=== PATIENT | female | born 1950 | race Caucasian/White ===

== ENCOUNTER 2020-01-21 11:42 | Outpatient (REF) | payer BC, SELFPAY ==
--- NOTE | 2020-01-21 11:48 | MM_ITS ---
EXAMINATION: MM DIAGNOSTIC DIGITAL BREAST TOMOSYNTHESIS, BILATERAL CLINICAL INFORMATION: Status post right lumpectomy 12/24/2018 for invasive lobular cancer upper outer quadrant. Due for yearly. COMPARISON: Mammography: 12/24/2018, 11/20/2018, 11/11/2018, 10/31/2018, 07/19/2016 TECHNIQUE: Digital breast tomosynthesis is performed in both the craniocaudal and mediolateral oblique views along with computer-aided detection (CAD). Synthesized 2D images are generated from the tomosynthesis. Additional views are obtained: Exaggerated right CC, magnification right CC, magnification right exaggerated CC, magnification right ML. FINDINGS: There are scattered areas of fibroglandular density (ACR BI-RADS breast composition Category b). There are post therapy changes upper outer right breast with mild reduced breast size, scarring, surgical clips, and mild smooth skin thickening. The remainder of the right breast is unremarkable. Left breast parenchymal pattern is similar to prior studies. There is no developing density or interval mass or architectural abnormality. No abnormal calcifications. There are stable bulky calcifications versus clip markers left axillary node similar to prior exams. No significant changes. MM/MM tomosynthesis diagnostic BI IMPRESSION: No mammographic evidence of malignancy. Post therapy changes right breast. ASSESSMENT: BI-RADS 2: Benign RECOMMENDATION: Annual bilateral mammography. This patient's information was entered into a reminder system with a target due date for their next mammogram.
== END 2020-01-21 11:43 | disposition home or self-care (01) ==
LOC: HO.MAMMO 11:42
PROVIDERS: PCP Internal Medicine; Visit Provider Internal Medicine
DX: Z85.3 Personal history of malignant neoplasm of breast (principal)
CPT/HCPCS: 77062; 77066

== ENCOUNTER → 2020-01-26 09:22 | Outpatient (BNV) | payer MEDICARE, BC, SELFPAY | PROVIDERS: PCP Internal Medicine; Visit Provider Internal Medicine | DX: Z85.3 Personal history of malignant neoplasm of breast (principal); Z92.3 Personal history of irradiation | CPT/HCPCS: 99213; G2211 ==

== ENCOUNTER 2021-01-18 12:17 | Outpatient (REF) | payer BC, SELFPAY ==
--- NOTE | ~2021-01-18 | MM_ITS ---
EXAMINATION: MM DIAGNOSTIC DIGITAL BREAST TOMOSYNTHESIS, BILATERAL CLINICAL INFORMATION: Right lumpectomy for invasive lobular cancer upper outer quadrant, 12/24/2018. Due for yearly. COMPARISON: Mammography: 01/21/2020, 12/24/2018, 11/11/2018, 10/31/2018, 07/19/2016 TECHNIQUE: Digital breast tomosynthesis is performed in both the craniocaudal and mediolateral oblique views along with computer-aided detection (CAD). Synthesized 2D images are generated from the tomosynthesis. Additional magnification right CC and magnification right ML views are obtained. FINDINGS: There are scattered areas of fibroglandular density (ACR BI-RADS breast composition Category b). Left breast is unremarkable. There is no developing density or interval mass or architectural abnormality. Neither breast shows abnormal calcifications. There are stable post therapy changes on the right with reduced breast size and scarring. No significant changes from prior study. Results are provided to the patient at time of visit by the technologist. MM/MM tomosynthesis diagnostic BI IMPRESSION: No mammographic evidence of malignancy. Post therapy changes right breast. ASSESSMENT: BI-RADS 2: Benign RECOMMENDATION: Annual bilateral mammography. This patient's information was entered into a reminder system with a target due date for their next mammogram.
== END 2021-01-18 12:18 | disposition home or self-care (01) ==
LOC: HO.MAMMO 12:17
PROVIDERS: Visit Provider Internal Medicine
DX: R92.2 Inconclusive mammogram (principal); Z85.3 Personal history of malignant neoplasm of breast
CPT/HCPCS: 77062; 77066

== ENCOUNTER 2022-01-19 12:49 | Outpatient (REF) | payer MEDICARE, SELFPAY ==
--- NOTE | ~2022-01-19 | MM_ITS ---
EXAMINATION: BONE DENSITOMETRY CLINICAL INDICATION: Other specified disorders of bone density and structure. COMPARISON: Previous BD dated 10/31/2018 and baseline BD dated 08/08/2006. TECHNIQUE: Using a [employer] DXA System (software version: 13.1) manufactured by [employer], dual-energy x-ray absorptiometry was performed of the lumbar spine and left hip. The images are of good technical quality. Summary results are attached. FINDINGS: AP SPINE L1-L4: Current: BMD 1.086 g/cm2, Z-score 1.4, T-score -0.8, normal, 2.5% decrease from previous, 3.5% decrease from baseline (<5% change is not significant). Prior: BMD 1.114 g/cm2. Baseline: BMD 1.125 g/cm2. LEFT FEMUR, NECK: Current: BMD 0.841 g/cm2, Z-score 0.7, T-score -1.4, osteopenia. Prior: BMD 0.858 g/cm2. Baseline: BMD 0.909 g/cm2. LEFT FEMUR, TOTAL: Current: BMD 0.948 g/cm2, Z-score 1.4, T-score -0.5, normal, 1.7% increase from previous, 9.0% decrease from baseline (<5% change is not significant). Prior: BMD 0.932 g/cm2. Baseline: BMD 1.042 g/cm2. IDENTIFIED RISK FACTORS: Menopause. HISTORY OF FRACTURE: None listed. MEDICATIONS: Calcium supplements or multivitamin, vitamin D. MM/XR DEXA axial skeleton IMPRESSION: 1. DIAGNOSIS: Osteopenia based on the lowest T-score value of -1.4 in the femoral neck applying World Health Organization criteria. 2. 10-YEAR FRACTURE RISK PREDICTION, FRAX: Major osteoporotic fracture (clinical spine, forearm, hip or shoulder) 9.0%. Hip fracture 1.6%. 3. Treatment Recommendations: NOF guidelines recommend consideration for treatment in postmenopausal women and men age 50 and older presenting with the following: -A hip or vertebral (clinical or morphometric) fracture. -T-score less than or equal to -2.5 at the femoral neck or spine after appropriate evaluation to exclude secondary causes. -Low bone mass at the hip or spine and a 10-year fracture probability by FRAX of greater than or equal to 3% for hip fracture or greater than or equal to 20% for major osteoporotic fracture based on the [place] adapted WHO algorithm. 4. Other Recommendations: All treatment decisions require clinical judgment and consideration of individual patient factors, including patient preferences, comorbidities, previous drug use, risk factors not captured in the FRAX model (e.g. frailty, falls, vitamin D deficiency, increased bone turnover, interval significant decline in bone density) and possible under or overestimation of fracture risk by FRAX. Additional medical evaluation for secondary cause of low bone mineral density may be appropriate. FUTURE SCAN RECOMMENDATION: People with diagnosed cases of osteoporosis or at high risk for fracture should have regular bone mineral density tests. For patients eligible for Medicare, routine testing is allowed once every 2 years. The testing frequency can be increased to one year for patients who have rapidly progressing disease, those who are receiving or discontinuing medical therapy to restore bone mass, or have additional risk factors.
--- NOTE | ~2022-01-19 | MM_ITS ---
EXAMINATION: MM DIAGNOSTIC DIGITAL BREAST TOMOSYNTHESIS, BILATERAL CLINICAL INFORMATION: Due for yearly. Right ILC status post lumpectomy 12/24/2018. COMPARISON: Mammography: 01/18/2021, 01/21/2020, 12/24/2018, 09/19/2018, 11/11/2018, 10/31/2018 TECHNIQUE: Digital breast tomosynthesis is performed in both the craniocaudal and mediolateral oblique views along with computer-aided detection (CAD). Synthesized 2D images are generated from the tomosynthesis. Additional right magnification CC and right magnification ML views are provided. FINDINGS: There are scattered areas of fibroglandular density (ACR BI-RADS breast composition Category b). Right breast post therapy changes are similar to prior exam. There is reduced breast size and stable scarring posterior upper outer quadrant. Neither breast shows interval mass or architectural abnormality or abnormal calcifications. There are no significant changes. Results are provided to the patient at time of visit by the technologist. MM/MM tomosynthesis diagnostic BI IMPRESSION: -No mammographic evidence of malignancy. -Post therapy changes right breast. ASSESSMENT: BI-RADS 2: Benign RECOMMENDATION: Routine annual mammography screening. This patient's information was entered into a reminder system with a target due date for their next mammogram.
== END 2022-01-19 12:50 | disposition home or self-care (01) ==
LOC: HO.MAMMO 12:49
PROVIDERS: PCP Internal Medicine; Visit Provider Internal Medicine
DX: Z13.820 Encounter for screening for osteoporosis (principal); M85.852 Other specified disorders of bone density and structure, left thigh; Z78.0 Asymptomatic menopausal state; Z85.3 Personal history of malignant neoplasm of breast
CPT/HCPCS: 77062; 77066; 77080

== ENCOUNTER 2022-11-09 08:23 | Outpatient (AMB) | payer MEDICARE, SELFPAY ==
--- NOTE | 2022-11-09 08:27 | AM.OFFVISMDC ---
Intake Vital Signs 11/09/22 08:33 Height 5 ft 3 in Weight 115 lb BMI 20.4 BP 138/78 Blood Pressure Location Rt brachial Position Sitting Pulse 76 Pulse Source Pulse Oximeter Pulse Oximetry (%) 96 Oxygen Delivery Method Room Air Intake Visit Reasons: awv Intake Note: Pt is here today for her AWV Allergies nickel [NICKEL] Allergy (Unknown, Verified 11/09/22 09:07) RASH Medication List - Last Reconciled 11/09/22 by Haily Gee MD [calcium 1 tab PO DAILY] cholecalciferol (vitamin D3) (Vitamin D3) 25 mcg PO DAILY HPI awv HPI Details AWV ?72 year old lady with history of right breast cancer, osteopenia of left femoral neck, and history of adenomatous polyps removed from colon, presents today for her initial Annual Wellness Visit.? She is due for her repeat colonoscopy due this year, with Dr. Logan. She is up-to-date with her screening mammogram, and had a bone density scan done 01/19/2022 which showed presence of osteopenia in left femoral neck. Up-to-date with her screening mammogram, due again January this year and had a normal Pap smear done in 2012, repeat no longer indicated. She had a fasting lipid panel done in 2019 which showed elevated LDL cholesterol with normal HDL Will and the fasting glucose was done 02/08/2022 which showed of sugar in the prediabetic range at 125 mg/dL. She has had all her COVID vaccine, will be getting the new booster dose went out, up-to-date with her Tdap, and gets yearly flu shots. She had get Pneumovax 23, but is due for her Prevnar 20. Has not yet had her shingles vaccine ? Medical / Social History Reviewed? Past Medical History ?Yes . ? [place] of Care / Care Team list updated ?Yes . ? Surgical/Hospitalization History ?Yes . ? Current Medications (including OTC and supplements) ?Yes . ? Family History ?Yes . ? Tobacco Control form ?Yes . ? AUDIT-C (Alcohol use) form ?Yes . ? Illicit drug use in Social History ?Yes . ? Current diagnosis of depression? ?No ? Appropriate PHQ2/PHQ9 completed ?Yes . ? Data entered by ?[employer]lee[employer] Worker and reviewed by provider ? Fall Risk ? Fall History? Have you had any falls with injury in the past year? ?No . ? Have you had two or more falls in the past year? ?No . ? Fall Risk Assessment: ?No falls in the past year . ? HRA filled out by the patient, reviewed by Provider and scanned. ? IPPE/AWV ? Balance? Romberg ?Yes . ? Tandem walk ?Yes . ? Walk and Turn ?Yes . ? Rise from sit to stand ?Yes . ?Vision? Corrective lens ?none, [facility]. ? Vision screen ? Up-to-date, , goes to [facility] for her routine eye exam ?Hearing? Whisper test ?pass . ?Written Plan?Completed. See Patient Documents.? PFSH Medical History Hyperlipidemia LDL goal <100 Impaired fasting glucose History of adenomatous polyp of colon Lobular carcinoma of right breast Surgical History History of surgery Hx of tonsillectomy Family History Mother Pancreatic cancer Father Heart disease Social History Household Members: Spouse Housing: House Are you a primary sub acute care nurse to a significant other at home: No Do you presently have visiting nurse or other home services: No Alcohol intake: current Alcohol intake frequency: holidays/special occasions only Patient Tobacco Use Status: Never used Tobacco e-Cigarette/Vaping Use: Never Used service: No Current occupational status: retired 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 Cognitive needs: No Hearing needs: No Vision needs: Yes Female Reproductive History Menstrual Menopause type: natural Date of Mammogram: 01/19/22 Date of last Bone Density Screenin01/19/22 Questionnaire Medicare Wellness Checkup [age] What gender do you identify with?: female During the past 4 weeks, how much have you been bothered by emotional problems such as feeling anxious, depressed, irritable, sad or downhearted, and blue?: not at all During the past 4 weeks, has your physical & emotional health limited your social activities with family, friends, neighbors, or groups?: not at all During the past 4 weeks, how much bodily pain have you generally had?: no pain During the past 4 weeks, was someone available to help you if you needed & wanted help?: yes, as much as I wanted During the past 4 weeks, what was the hardest physical activity you could do for at least 2 minutes?: moderate Can you get to places out of walking distance without help? (For eg., can you travel alone on buses, taxis or drive your car?): Yes Can you go shopping for groceries or clothes without someone's help?: Yes Can you prepare your own meals?: Yes Can you do your housework without help?: Yes Because of any health problems, do you need the help of another person with your personal care needs such as eating, bathing, dressing or getting around the house?: No Can you handle your own money without help?: Yes During the past 4 weeks, how would you rate your health in general?: excellent During the past 4 weeks how have things been going for you?: very well; could hardly better Are you having difficulties driving your car?: no Do you always fasten your seat belt when you are in a car?: yes, usually During past 4 weeks, have you been bothered by the following: never: Falling or dizzy when standing up, Sexual problems?, Trouble eating well?, Teeth or denture problems?, Problems using the telephone? and Tiredness or fatigue? Have you fallen 2 or more times in the past year?: No Are you afraid of falling?: No Are you a smoker?: no During the past 4 weeks, how many drinks of wine, beer, or other alcoholic beverages did you have?: 1 drink or less per week Do you exercise for about 20 minutes 3 or more times a week?: yes, some of the time Have you been given information to help with the following?: no: Hazards in your house that might hurt you? and no: Keeping track of your medications? How often do you have trouble taking medicines the way you have been told to take them?: I do not have to take medicine How confident are you that you can control & manage most of your health problems?: very confident What is your race?: White Mini Mental State Exam (MMSE) Orientation What is the (year) (season) (date) (day) (month)?: year (2022), season (Summer), date (), day () and month (November) Where are we (state) (county) (town or city) (hospital) (floor)?: state ([place]), county ([place]), town or city ([place]) and hospital/clinic ([facility]) Score Score: 9 Activity of Daily Living Bathing - sponge bath, tub bath or shower: receives no assistance (gets in/out by self, if usual bathing means Dressing - getting clothes from closets & drawers, including inner/outer garments & fasteners.: gets clothes & gets completely dressed without help Toileting - going to the 'toilet room' for urine/bowel elimination & cleaning self/arranging clothes: goes to toilet room, cleans self, arranges clothes without help Transfer: moves in & out of bed and chair without help (may use support object) Continence: controls urination/bowel movements completely by self Feeding: feeds self without help Total Score: 0 Information obtained from: patient Using telephone: independent Traveling: independent Shopping: independent Preparing meals: independent Housework: independent Taking medicine: independent Managing money: independent PHQ-9 Over the last 2 weeks, how often have you been bothered by any of the following problems? 1. Little interest or pleasure in doing things: not at all 2. Feeling down, depressed, or hopeless: not at all 3. Trouble falling or staying asleep, or sleeping too much: not at all 4. Feeling tired or having little energy: not at all 5. Poor appetite or overeating: not at all 6. Feeling bad about yourself - or that you are a failure or have let yourself or your family down: not at all 7. Trouble concentrating on things, such as reading the newspaper or watching television: not at all 8. Moving or speaking so slowly that other people could have noticed. Or the opposite - being so fidgety or restless that you have been moving around a lot more than usual: not at all 9. Thoughts that you would be better off or of hurting yourself in some way: not at all Total score: 0 Depression Screening Interpretation: Negative 53417 - PHQ-9 Billing: Yes Source: Developed by Drs. Indio Swartz, Giana eMjia, Leo López and colleagues, with an educational kamala from [employer]. Physical Exam Vital Signs: Last Vital Signs Pulse 76 11/09/22 08:33 BP 138/78 11/09/22 08:33 Pulse Ox 96 11/09/22 08:33 Oxygen Delivery Method Room Air 11/09/22 08:33 BMI result Body Mass Index 20.4 Immunizations pneumoc 20-mingo conj-dip cr(PF) 0.5 mL IM syringe Performing Provider: Haily Gee MD Performing Location: [facility] Administered by: Angelica Chang CMA on 11/09/22 09:32 Dose Route Admin Location Dispensed Lot Number Expiration Date NDC Location Analyst 0.5 mL IM Left Deltoid 0.5 mL [id number] 11/03/23 7370-1488-90 [employer]/PFIZER VIS Given Date VIS Provided VIS Publication Date 11/09/22 Single Vaccine 21 Eligibility Eligibility Date Funding Source Not [facility] Eligible 11/09/22 Private Assessment & Plan Assessment & Plan (1) Encounter for initial annual wellness visit (AWV) in Medicare patient: Code(s): Z00.00 - Encounter for general adult medical examination without abnormal findings Plan: Medical wellness checklist reviewed, discussed with patient and updated. Referred to Dr. Logan again for her repeat screening colonoscopy. Reminded to get her yearly flu shot and a COVID booster that is coming out later this year, recommended to get Shingrix vaccine and RSV vaccine . Patient already has completed her healthcare proxy and MOLST form , copies are in her medical record (2) History of adenomatous polyp of colon: Comment: Seen on colonoscopy done by Dr. Logan in 2017 Code(s): Z86.010 - Personal history of colonic polyps Plan: GI consult ordered for her repeat screening colonoscopy, due this year (3) Osteopenia of left femoral neck: Code(s): M85.852 - Other specified disorders of bone density and structure, left thigh Plan: Continue with regular weight-bearing exercises and take adequate calcium from dietary sources and tnub-vli-egmihtb vitamin-D 3 at at least 2000 units daily (4) Need for pneumococcal 20-valent conjugate vaccination: Code(s): Z23 - Encounter for immunization Plan: Prevnar 20 given today (5) Hyperlipidemia LDL goal <100: Code(s): E78.5 - Hyperlipidemia, unspecified Plan: Repeat fasting lipid panel ordered today, stressed importance of adherence to low-cholesterol diet and regular exercise, at least 30 minutes 3 to 4 times a week. Advised patient to make healthy food choices, eat more fruits, vegetables, whole grains, wild caught fish and low-fat dairy. Limit amount of meat and fried or fatty food products, as well as processed foods and fast foods. (6) Impaired fasting glucose: Code(s): R73.01 - Impaired fasting glucose Plan: Your fasting blood sugars were elevated above 100 mg/dL in the past 2 visits. Impaired glucose metabolism O2 at risk for developing diabetes mellitus type 2, as well as heart attack and stroke later on. Lifestyle changes at just weight loss, healthy eating habits, and regular exercise are important, and can prevent the progression to diabetes, fasting blood sugar and hemoglobin A1c ordered (7) History of right breast cancer: Code(s): Z85.3 - Personal history of malignant neoplasm of breast Plan: Followed by Dr. Bhatti, gets yearly mammogram Orders: Orders Hemoglobin A1c Today E78.5 - Hyperlipidemia, unspecified, M85.852 - Other specified disorders of bone density and structure, left thigh, R73.01 - Impaired fasting glucose, Z78.0 - Asymptomatic menopausal state, Z86.010 - Personal history of colonic polyps Lipid Panel Today E78.5 - Hyperlipidemia, unspecified, M85.852 - Other specified disorders of bone density and structure, left thigh, R73.01 - Impaired fasting glucose, Z78.0 - Asymptomatic menopausal state, Z86.010 - Personal history of colonic polyps Vitamin B12 and Folate Today E78.5 - Hyperlipidemia, unspecified, M85.852 - Other specified disorders of bone density and structure, left thigh, R73.01 - Impaired fasting glucose, Z78.0 - Asymptomatic menopausal state, Z86.010 - Personal history of colonic polyps Basic Metabolic Panel Fasting Today E78.5 - Hyperlipidemia, unspecified, M85.852 - Other specified disorders of bone density and structure, left thigh, R73.01 - Impaired fasting glucose, Z78.0 - Asymptomatic menopausal state, Z86.010 - Personal history of colonic polyps Vitamin D 25-OH Total Today E78.5 - Hyperlipidemia, unspecified, M85.852 - Other specified disorders of bone density and structure, left thigh, R73.01 - Impaired fasting glucose, Z78.0 - Asymptomatic menopausal state, Z86.010 - Personal history of colonic polyps Pneumococcal 20 Immunization Today Z23 - Encounter for immunization Referrals Gastroenterology Referral Z86.010 - Personal history of colonic polyps Quality Reporting (2019) Depression/Bipolar (159/160/161/177) PHQ-9: Total score: 0 Coding Level of Care Code Medicare First (G0438) Diagnoses Encounter for initial annual wellness visit (AWV) in Medicare patient Z00.00 History of adenomatous polyp of colon Z86.010 Osteopenia of left femoral neck M85.852 Need for pneumococcal 20-valent conjugate vaccination Z23 Hyperlipidemia LDL goal <100 E78.5 Impaired fasting glucose R73.01 History of right breast cancer Z85.3 CPT Codes Advance Care Planning - Advance Care Planning discussion: On file, no changes ([id number]) Advance Care Planning - Time spent: 1-15 minutes, on File ([id number]) Advance Care Planning Advance Care Planning discussion: On file, no changes Date of discussion: 11/09/22 Who was present: Patient Forms completed: Health Care Proxy and MOLST Time spent: 1-15 minutes, on File Actual minutes spent: 15
[2022-11-09 08:33] VITALS: BP 138/78; PULSE 76; O2SAT 96; BMI 20.4
== END 2022-11-09 09:32 | disposition home or self-care (01) ==
PROVIDERS: Visit Provider Internal Medicine
DX: Z00.00 Encounter for general adult medical examination without abnormal findings (principal); Z86.010 Personal history of colon polyps; Z85.3 Personal history of malignant neoplasm of breast; M85.852 Other specified disorders of bone density and structure, left thigh; Z23 Encounter for immunization; E78.5 Hyperlipidemia, unspecified; R73.01 Impaired fasting glucose
CPT/HCPCS: 1123F; 90471; 90677; G0438

== ENCOUNTER 2023-01-15 07:31 | Outpatient (REF) | payer MEDICARE, SELFPAY ==
[2023-01-15 11:35] LABS: Estimated Average Glucose 103 mg/dL; Hemoglobin A1c % 5.2 % (<6.0)
[2023-01-15 11:41] LABS: Anion Gap 12 (12-20); Blood Urea Nitrogen 9 mg/dL (9-16); Calcium 9.7 mg/dL (8.4-10.2); Carbon Dioxide 29 mmol/L (22-29); Chloride 104 mmol/L (96-108); Cholesterol 264 mg/dL (<200); Estimated Glomerular Filt Rate > 60; Glucose Fasting 106 mg/dL (60-99); HDL Cholesterol 73 mg/dL (>40); LDL Cholesterol Calculated 165 mg/dL (<100); Potassium 4.1 mmol/L (3.3-5.1); Sodium 141 mmol/L (135-145); Triglycerides 132 mg/dL (<150)
[2023-01-15 12:02] LABS: Vitamin D 25-OH Total 79.9 ng/mL (>30)
[2023-01-15 12:07] LABS: Folate 10.3 ng/mL (> or = 4.0); Vitamin B12 702 pg/mL (200-900)
== END 2023-01-15 07:32 | disposition home or self-care (01) ==
LOC: HO.HMGCLDS 07:31
PROVIDERS: PCP Internal Medicine; Visit Provider Internal Medicine
DX: E78.5 Hyperlipidemia, unspecified (principal); R73.01 Impaired fasting glucose; M85.852 Other specified disorders of bone density and structure, left thigh; Z78.0 Asymptomatic menopausal state; Z86.010 Personal history of colon polyps
CPT/HCPCS: 36415; 80048; 80061; 82306; 82607; 82746; 83036

== ENCOUNTER 2023-01-22 12:52 | Outpatient (REF) | payer MEDICARE, SELFPAY ==
--- NOTE | ~2023-01-22 | MM_ITS ---
EXAMINATION: MM SCREENING DIGITAL BREAST TOMOSYNTHESIS, BILATERAL CLINICAL INFORMATION: Screening. Asymptomatic. The patient is status post right breast surgery for invasive lobular cancer in 2019. COMPARISON: Mammography: This study is compared with prior exams dating back to 2016. TECHNIQUE: Digital breast tomosynthesis is performed in both the craniocaudal and mediolateral oblique views along with computer-aided detection (CAD). Synthesized 2D images are generated from the tomosynthesis. FINDINGS: There are scattered areas of fibroglandular density (ACR BI-RADS breast composition Category b). There are no significant masses, abnormal calcifications, or other abnormalities. There are postsurgical changes in the upper outer quadrant of the right breast. There are few, coarse, benign calcifications in the left axilla. These are unchanged. MM/MM tomosynthesis screening BI IMPRESSION: No mammographic evidence of malignancy. ASSESSMENT: BI-RADS BI-RADS 2 - Benign Findings RECOMMENDATION: Routine annual mammography screening. 1 year F/U This examination should not preclude the clinical evaluation of a suspicious palpable abnormality. This patient's information was entered into a reminder system with a target due date for their next mammogram.
== END 2023-01-22 12:53 | disposition home or self-care (01) ==
LOC: HO.MAMMO 12:52
PROVIDERS: PCP Internal Medicine; Visit Provider Internal Medicine
DX: Z12.31 Encounter for screening mammogram for malignant neoplasm of breast (principal)
CPT/HCPCS: 77063; 77067

== ENCOUNTER → 2023-01-22 13:00 | Outpatient (BNV) | payer MEDICARE, SELFPAY | PROVIDERS: PCP Internal Medicine; Visit Provider Radiology Diagnostic Radiology | DX: Z12.31 Encounter for screening mammogram for malignant neoplasm of breast (principal) | CPT/HCPCS: 77063; 77067 ==

== ENCOUNTER 2023-04-16 08:46 | Outpatient (AMB) | payer MEDICARE, SELFPAY ==
[2023-04-16 08:57] VITALS: BP 112/60; PULSE 71; O2SAT 99; BMI 20.5
--- NOTE | 2023-04-16 08:57 | A.OFFPC_ITS ---
Vital Signs 04/16/23 08:57 Height 5 ft 3 in Weight 116 lb BMI 20.5 BP 112/60 Blood Pressure Location Lt brachial Position Sitting Pulse 71 Pulse Source Pulse Oximeter Pulse Oximetry (%) 99 Oxygen Delivery Method Room Air Intake Visit Reasons: [facility] Heart Attack Intake Note: Pt is here today for her [facility] heart attack Allergies nickel [NICKEL] Allergy (Unknown, Verified 04/16/23 10:00) RASH Medication List - Last Reconciled 04/16/23 by Haily Gee MD aspirin (Adult Low Dose Aspirin) 81 mg PO DAILY atorvastatin 80 mg PO DAILY [calcium 1 tab PO DAILY] cholecalciferol (vitamin D3) (Vitamin D3) 25 mcg PO DAILY losartan 25 mg PO DAILY metoprolol succinate ER 25 mg PO DAILY ticagrelor (Brilinta) 90 mg PO BID Tobacco use date assessed: 04/16/23 Fall risk assessment: No Falls in past year Last assessed Fall Risk: 04/16/23 Dental Screening Dental Screen Date: 04/16/23 HPI [facility] Heart Attack HPI Details 72-year-old lady with no cardiac history , here today for follow-up after a recent admission at [facility] [phone] for acute STEMI. Underwent cardiac catheterization with stent placed and started on Brilinta 90 mg p.o. b.i.d. and metoprolol 25 mg once a day and losartan 25 mg once daily, aspirin 81 mg daily and atorvastatin 80 mg daily. She has been feeling well after discharge, no further episodes of chest pain, no lightheadedness, no unusual bruising or bleeding, no shortness of breath or easy fatigability. She has already been seen by for cardiac follow-up last week, and he ordered an ultrasound of both carotids and a repeat echocardiogram to be done later this month has an appointment for follow-up with him again next month.. She was supposed to have a screening colonoscopy done tomorrow with Dr. Logan but had to reschedule it. [facility] Medical History (Updated 04/17/23 @ 00:36 by Haily Gee MD) Left carotid bruit Ischemic cardiomyopathy History of ST elevation myocardial infarction (STEMI) Hyperlipidemia LDL goal <100 Impaired fasting glucose History of adenomatous polyp of colon Lobular carcinoma of right breast Surgical History History of heart artery stent History of surgery Hx of tonsillectomy Family History Mother Pancreatic cancer Father Heart disease Social History Household Members: Spouse Housing: House Are you a primary care information associate to a significant other at home: No Do you presently have visiting nurse or other home services: No Alcohol intake: current Alcohol intake frequency: holidays/special occasions only Patient Tobacco Use Status: Never used Tobacco e-Cigarette/Vaping Use: Never Used service: No Current occupational status: retired 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 1. Little interest or pleasure in doing things: not at all 2. Feeling down, depressed, or hopeless: not at all 3. Trouble falling or staying asleep, or sleeping too much: not at all 4. Feeling tired or having little energy: not at all 5. Poor appetite or overeating: not at all 6. Feeling bad about yourself - or that you are a failure or have let yourself or your family down: not at all 7. Trouble concentrating on things, such as reading the newspaper or watching television: not at all 8. Moving or speaking so slowly that other people could have noticed. Or the opposite - being so fidgety or restless that you have been moving around a lot more than usual: not at all 9. Thoughts that you would be better off or of hurting yourself in some way: not at all Total score: 0 Depression Screening Interpretation: Negative Depression Screening Done: Yes 66479 - PHQ-9 Billing: Yes Source: Developed by Drs. Indio Swartz, Giana Mejia, Leo López and colleagues, with an educational kamala from [employer]. Thrive Questionnaire Date Thrive assessed: 04/16/23 I am a: Patient What is your living situation today?: I have a steady place to live Within the past 12 months, did the food you bought not last and you didn't have the money to get more?: Never true Within the past 12 months, did you worry whether your food would run out before you got money to buy more?: Never true Do you have trouble paying for medicines?: No Do you have trouble getting transportation to medical appointments?: No Do you have trouble paying your heating and electricity bill?: No Do you have trouble taking care of your child, family member or friend?: No Do you have trouble with day-to-day activities such as bathing, preparing meals, shopping, managing finances, etc.?: No Are you currently unemployed and looking for a job?: No Are you interested in more education?: No THRIVE Score: 0 AUDIT C Alcohol Use Questionnaire (AUDIT-C) 1. How often do you have a drink containing alcohol?: Never Total Score: 0 EUSEBIO-7 AMB Questionnaire EUSEBIO-7 Date EUSEBIO - 7 assessed: 04/16/23 Feeling nervous, anxious, or on edge: 0 = Not at all Not being able to stop or control worryin = Not at all Worrying too much about different things: 0 = Not at all Trouble relaxin = Not at all Being so restless that it is hard to sit still: 0 = Not at all Becoming easily annoyed or irritable: 0 = Not at all Feeling afraid as if something awful might happen: 0 = Not at all Total EUSEBIO-7 score (0-4 normal; 5-9 mild; 10-14 moderate; 15-21 severe): 0 Source: Developed by Drs. Indio Swartz, Giana Mejia, Leo López and colleagues, with an educational kamala from [employer]. EUSEBIO-7 Assessment Billing EUSEBIO-7 Assessment Tool: EUSEBIO-7 Assessment 77710 Review of Systems Const Denies body aches, Denies fatigue, Denies fever(s) and Denies headache(s) Eyes Denies change in vision and Denies eye discharge ENT Denies dizziness, Denies headache(s), Denies nasal congestion, Denies nasal discharge and Denies sore throat Card Denies chest pain, Denies lightheadedness, Denies palpitations and Denies dyspnea Resp Denies cough and Denies dyspnea GI Denies abdominal pain, Denies change in bowel habits and Denies heartburn Denies hematuria, Denies urinary frequency, Denies dysuria and Denies urinary urgency Musc Reports no additional complaints Skin/Breast Denies rash Neuro Denies dizziness and Denies headache(s) Psych Reports no additional complaints Endo Denies fatigue, Denies polydipsia, Denies polyuria and Denies palpitations Aryan/Lymph Denies easy bruising Aller/Immun Denies seasonal rhinorrhea Physical exam (Primary Care) Vital Signs: Last Vital Signs Pulse 71 04/16/23 08:57 BP 112/60 04/16/23 08:57 Pulse Ox 99 04/16/23 08:57 Oxygen Delivery Method Room Air 04/16/23 08:57 BMI result Body Mass Index 20.5 Tobacco/Smoking Status: Tobacco use Status Tobacco use date assessed 04/16/23 04/16/23 09:03 Patient Tobacco Use Status Never used Tobacco 04/16/23 09:03 e-Cigarette/Vaping Use Never Used 04/16/23 09:03 PHQ-9: PHQ-9 Score PHQ-9: Total score 0 04/16/23 10:05 Depression Screening Interpretation: Negative Thrive Assessment: Date of Thrive Assessment Date Thrive assessed 04/16/23 04/16/23 09:03 Const General: comfortable, no acute distress and alert Nutritional Appearance: average body habitus Orientation/consciousness: patient oriented x3 HENMT Head: Yes atraumatic Ears: TM's normal bilaterally and EAC's normal General nose exam: Normal external nose present and No nasal discharge present Face and sinus: Yes face symmetric Mouth: Normal oral and palatal mucosa present and moist mucous membranes Eyes General: appearance normal, both eyes and all related structures Neck Neck: Yes full ROM, Yes no lymphadenopathy and Yes supple Thyroid: Thyroid normal Resp Auscultation: clear to auscultation bilaterally Cardio Rate: regular rate Rhythm: regular rhythm Heart sounds: S1 normal heart sound present and S2 normal heart sound present Bruits: carotid bruit on the left GI Palpation (GI): Soft to palpation, nontender, no guarding and no masses Back/Spine/Pelvis Back: No back tenderness Skin General skin exam: no rashes or lesions noted Neuro General: patient oriented x3, gait normal, moves all extremities, Normal light touch and pain sensation, no focal motor deficits and CN's II-XI intact bilaterally Extrem General: Yes full ROM, Yes no joint enlargement and Yes no pedal edema Psych Appearance: grossly normal and well kempt Mental Status: mental status grossly normal Speech and movement: Normal speech and movement present Affect: normal affect Attitude: cooperative Assessment and Plan Assessment & Plan (1) History of ST elevation myocardial infarction (STEMI): Code(s): I25.2 - Old myocardial infarction Plan: Currently on Brilinta and aspirin 81 mg daily in addition to metoprolol and losartan, with goal blood pressure less than 130/80 and lipid less than 70 mg/dL. Scheduled for carotid ultrasound bilateral an echocardiogram, and has an appointment for follow-up after that with her j2ee engineer next month (2) Ischemic cardiomyopathy: Code(s): I25.5 - Ischemic cardiomyopathy Plan: Continue present treatment, has an appointment for a repeat echocardiogram next month (3) History of heart artery stent: Code(s): Z95.5 - Presence of coronary angioplasty implant and graft Plan: Continue dual anticoagulation with aspirin and Brilinta to complete 1 year of treatment (4) Hyperlipidemia LDL goal <100: Code(s): E78.5 - Hyperlipidemia, unspecified Plan: Currently on atorvastatin 80 mg daily, to have fasting lipids repeated again in 3 months, with a goal LDL of less than 70 mg/dL. Patient advised to get copies of reports from her j2ee engineer. (5) Impaired fasting glucose: Code(s): R73.01 - Impaired fasting glucose Plan: Your fasting blood sugars elevated above 100 mg/dL. Impaired glucose metabolism O2 at risk for developing diabetes mellitus type 2, as well as heart attack and stroke later on. Lifestyle changes at just weight loss, healthy eating habits, and regular exercise are important, and can prevent the progression to diabetes (6) History of adenomatous polyp of colon: Comment: Seen on colonoscopy done by Dr. Logan in 2017 Code(s): Z86.010 - Personal history of colonic polyps Plan: Patient already rescheduled her repeat colonoscopy with Dr. Logan for next year (7) Left carotid bruit: Code(s): R09.89 - Other specified symptoms and signs involving the circulatory and respiratory systems Plan: Already scheduled to have a bilateral carotid ultrasound ordered by her j2ee engineer Coding Level of Care Code Est Pt Level 4 (45599) Diagnoses History of ST elevation myocardial infarction (STEMI) I25.2 Ischemic cardiomyopathy I25.5 History of heart artery stent Z95.5 Hyperlipidemia LDL goal <100 E78.5 Impaired fasting glucose R73.01 History of adenomatous polyp of colon Z86.010 Left carotid bruit R09.89 Additional Codes EUSEBIO-7 Assessment Billing - EUSEBIO-7 Assessment Tool: EUSEBIO-7 Assessment 64513 ([id number])
== END 2023-04-16 15:04 | disposition home or self-care (01) ==
PROVIDERS: PCP Internal Medicine; Visit Provider Internal Medicine
DX: I25.2 Old myocardial infarction (principal); I25.5 Ischemic cardiomyopathy; Z95.5 Presence of coronary angioplasty implant and graft; E78.5 Hyperlipidemia, unspecified; R73.01 Impaired fasting glucose; Z86.010 Personal history of colon polyps; R09.89 Other specified symptoms and signs involving the circulatory and respiratory systems
CPT/HCPCS: 99214

== ENCOUNTER 2023-11-12 08:23 | Outpatient (AMB) | payer MEDICARE, SELFPAY ==
[2023-11-12 08:29] VITALS: BP 124/68; PULSE 74; O2SAT 99; BMI 20.6
--- NOTE | 2023-11-12 08:29 | AM.OFFVISMDC ---
Intake Vital Signs 11/12/23 08:29 Height 5 ft 3 in Weight 116 lb 8 oz BMI 20.6 BP 124/68 Blood Pressure Location Lt brachial Position Sitting Pulse 74 Pulse Oximetry (%) 99 Intake Visit Reasons: SWV Intake Note: Pt is here today for her Medicare Wellness. Allergies nickel [NICKEL] Allergy (Unknown, Verified 11/12/23 09:02) RASH Medication List - Last Reconciled 11/12/23 by Haily Gee MD aspirin (Adult Low Dose Aspirin) 81 mg PO DAILY atorvastatin 80 mg PO DAILY [calcium 1 tab PO DAILY] cholecalciferol (vitamin D3) (Vitamin D3) 25 mcg PO DAILY losartan 25 mg PO DAILY metoprolol succinate ER 25 mg PO DAILY ticagrelor (Brilinta) 90 mg PO BID Do you need a note to return to daycare/school/sports/work: No HPI SWV HPI Details SWV ? 73-year-old lady with past medical history for coronary artery disease status post STEMI with cardiac stent placed, has hyperlipidemia, prediabetes, history of adenomatous colon polyp, history of right breast cancer, and osteopenia of left femoral neck, presents for her Subsequent Annual Wellness Visit.? She is up-to-date with her screening mammogram, repeat due again later this month. No longer gets her Pap smears or pelvic exam. She is due for her repeat colonoscopy screening, done by Dr. Logan in the past, patient states that she will just schedule appointment. Up-to-date with her bone density scan done in 2021 which showed presence of normal bone density in AP lumbar spine and left femur, with mild osteopenia in left femoral neck seen. She is up-to-date with her flu vaccine COVID vaccination, and pneumococcal vaccination, but does not want to get shingles vaccine. She is due now to have a repeat fasting lipid panel and fasting blood glucose checked. ? Medical / Social History Reviewed? Past Medical History ?Yes . ? [place] of Care / Care Team list updated ?Yes . ? Surgical/Hospitalization History ?Yes . ? Current Medications (including OTC and supplements) ?Yes . ? Family History ?Yes . ? Tobacco Control form ?Yes . ? AUDIT-C (Alcohol use) form ?Yes . ? Illicit drug use in Social History ?Yes . ? Current diagnosis of depression? ?No ? Appropriate PHQ2/PHQ9 completed ?Yes . ? Data entered by ?[employer] and reviewed by provider ? Fall Risk ? Fall History? Have you had any falls with injury in the past year? ?No . ? Have you had two or more falls in the past year? ?No . ? Fall Risk Assessment: ?No falls in the past year . ? HRA filled out by the patient, reviewed by Provider and scanned. ?SWV ? Balance? Romberg negative ? Tandem walk ?Yes . ? Walk and Turn ?Yes . ? Rise from sit to stand ?Yes . ?Vision? Corrective lens ?Yes, sees Dr. Matson at [facility] ? Vision screen ? Up-to-date, ?Hearing? Whisper test ?pass . ?Written Plan?Completed. See Patient Documents.? [facility] Medical History Left carotid bruit Ischemic cardiomyopathy History of ST elevation myocardial infarction (STEMI) Hyperlipidemia LDL goal <100 Impaired fasting glucose History of adenomatous polyp of colon Lobular carcinoma of right breast Surgical History History of heart artery stent History of surgery Hx of tonsillectomy Family History Mother Pancreatic cancer Father Heart disease Social History Household Members: Spouse Housing: House Are you a primary hemodialysis patient care specialist to a significant other at home: No Do you presently have visiting nurse or other home services: No Alcohol intake: current Alcohol intake frequency: holidays/special occasions only Patient Tobacco Use Status: Never used Tobacco e-Cigarette/Vaping Use: Never Used service: No Current occupational status: retired Current occupation: [employer] Cognitive needs: No Hearing needs: No Vision needs: Yes Questionnaire Medicare Wellness Checkup [age] What gender do you identify with?: female During the past 4 weeks, how much have you been bothered by emotional problems such as feeling anxious, depressed, irritable, sad or downhearted, and blue?: not at all During the past 4 weeks, has your physical & emotional health limited your social activities with family, friends, neighbors, or groups?: not at all During the past 4 weeks, how much bodily pain have you generally had?: no pain During the past 4 weeks, was someone available to help you if you needed & wanted help?: yes, as much as I wanted During the past 4 weeks, what was the hardest physical activity you could do for at least 2 minutes?: very heavy Can you get to places out of walking distance without help? (For eg., can you travel alone on buses, taxis or drive your car?): Yes Can you go shopping for groceries or clothes without someone's help?: Yes Can you prepare your own meals?: Yes Can you do your housework without help?: Yes Because of any health problems, do you need the help of another person with your personal care needs such as eating, bathing, dressing or getting around the house?: No Can you handle your own money without help?: Yes During the past 4 weeks, how would you rate your health in general?: excellent During the past 4 weeks how have things been going for you?: very well; could hardly better Are you having difficulties driving your car?: no Do you always fasten your seat belt when you are in a car?: yes, usually During past 4 weeks, have you been bothered by the following: never: Falling or dizzy when standing up, Sexual problems?, Trouble eating well?, Teeth or denture problems?, Problems using the telephone? and Tiredness or fatigue? Have you fallen 2 or more times in the past year?: No Are you afraid of falling?: No Are you a smoker?: no During the past 4 weeks, how many drinks of wine, beer, or other alcoholic beverages did you have?: 1 drink or less per week Do you exercise for about 20 minutes 3 or more times a week?: yes, most of the time Have you been given information to help with the following?: yes: Hazards in your house that might hurt you? and yes: Keeping track of your medications? How often do you have trouble taking medicines the way you have been told to take them?: I always take medicine as prescribed How confident are you that you can control & manage most of your health problems?: very confident What is your race?: White Mini Mental State Exam (MMSE) Orientation What is the (year) (season) (date) (day) (month)?: year (2023), season (Summer), date (11/12/2023), day and month (November) Where are we (state) (county) (town or city) (hospital) (floor)?: state ([place]), [facility] ([place]), town or city ([place]) and hospital/clinic ([facility]) Score Score: 9 Activity of Daily Living Bathing - sponge bath, tub bath or shower: receives no assistance (gets in/out by self, if usual bathing means Dressing - getting clothes from closets & drawers, including inner/outer garments & fasteners.: gets clothes & gets completely dressed without help Toileting - going to the 'toilet room' for urine/bowel elimination & cleaning self/arranging clothes: goes to toilet room, cleans self, arranges clothes without help Transfer: moves in & out of bed and chair without help (may use support object) Continence: controls urination/bowel movements completely by self Feeding: feeds self without help Total Score: 0 Information obtained from: patient Using telephone: independent Traveling: independent Shopping: independent Preparing meals: independent Housework: independent Taking medicine: independent Managing money: independent PHQ-9 Over the last 2 weeks, how often have you been bothered by any of the following problems? 1. Little interest or pleasure in doing things: not at all 2. Feeling down, depressed, or hopeless: not at all 3. Trouble falling or staying asleep, or sleeping too much: not at all 4. Feeling tired or having little energy: not at all 5. Poor appetite or overeating: not at all 6. Feeling bad about yourself - or that you are a failure or have let yourself or your family down: not at all 7. Trouble concentrating on things, such as reading the newspaper or watching television: not at all 8. Moving or speaking so slowly that other people could have noticed. Or the opposite - being so fidgety or restless that you have been moving around a lot more than usual: not at all 9. Thoughts that you would be better off or of hurting yourself in some way: not at all Total score: 0 Depression Screening Interpretation: Negative Depression Screening Done: Yes 33564 - PHQ-9 Billing: Yes Source: Developed by Drs. Indio Swartz, Giana Mejia, Leo López and colleagues, with an educational kamala from [employer]. Physical Exam Vital Signs: Last Vital Signs BP 124/68 11/12/23 08:29 BMI result Body Mass Index 20.6 Assessment & Plan Assessment & Plan (1) Encounter for subsequent annual wellness visit (AWV) in Medicare patient: Code(s): Z00.00 - Encounter for general adult medical examination without abnormal findings Plan: Medical wellness checklist reviewed, discussed with patient and updated. Patient will schedule own appointment with Dr. Logan for her repeat colonoscopy. Up-to-date with her vaccinations but does not want to get the shingles vaccine (2) History of right breast cancer: Code(s): Z85.3 - Personal history of malignant neoplasm of breast Plan: Followed by Dr. Jacob, up-to-date with her annual mammogram (3) Osteopenia of left femoral neck: Code(s): M85.852 - Other specified disorders of bone density and structure, left thigh Plan: Currently taking calcium and vitamin-D 3 supplements, encouraged to continue with regular weight-bearing exercise, will repeat another bone density scan next year (4) History of adenomatous polyp of colon: Comment: Seen on colonoscopy done by Dr. Logan in 2017 Code(s): Z86.010 - Personal history of colonic polyps Plan: She is overdue to get her screening colonoscopy, patient states she will schedule appointment with Dr. Logan (5) Hyperlipidemia LDL goal <100: Code(s): E78.5 - Hyperlipidemia, unspecified Plan: Currently on atorvastatin, fasting lipid panel and liver enzymes ordered (6) History of ST elevation myocardial infarction (STEMI): Code(s): I25.2 - Old myocardial infarction Plan: Currently on aspirin 81 mg daily, followed by cardiology (7) History of heart artery stent: Code(s): Z95.5 - Presence of coronary angioplasty implant and graft Plan: Followed by cardiology, reinforced importance of following a low-cholesterol diet and getting blood pressure diabetes as well as cholesterol levels under control (8) Ischemic cardiomyopathy: Code(s): I25.5 - Ischemic cardiomyopathy Plan: Followed by cardiology Orders: Orders Vitamin D 25-OH Total Today E78.5 - Hyperlipidemia, unspecified, I25.2 - Old myocardial infarction, I25.5 - Ischemic cardiomyopathy, M85.852 - Other specified disorders of bone density and structure, left thigh, R09.89 - Other specified symptoms and signs involving the circulatory and respiratory systems, R73.01 - Impaired fasting glucose, Z85.3 - Personal history of malignant neoplasm of breast, Z86.010 - Personal history of colonic polyps, Z95.5 - Presence of coronary angioplasty implant and graft Comprehensive [place]. Panel Fast Today E78.5 - Hyperlipidemia, unspecified, I25.2 - Old myocardial infarction, I25.5 - Ischemic cardiomyopathy, M85.852 - Other specified disorders of bone density and structure, left thigh, R09.89 - Other specified symptoms and signs involving the circulatory and respiratory systems, R73.01 - Impaired fasting glucose, Z85.3 - Personal history of malignant neoplasm of breast, Z86.010 - Personal history of colonic polyps, Z95.5 - Presence of coronary angioplasty implant and graft Lipid Panel Today E78.5 - Hyperlipidemia, unspecified, I25.2 - Old myocardial infarction, I25.5 - Ischemic cardiomyopathy, M85.852 - Other specified disorders of bone density and structure, left thigh, R09.89 - Other specified symptoms and signs involving the circulatory and respiratory systems, R73.01 - Impaired fasting glucose, Z85.3 - Personal history of malignant neoplasm of breast, Z86.010 - Personal history of colonic polyps, Z95.5 - Presence of coronary angioplasty implant and graft Hemoglobin A1c Today E78.5 - Hyperlipidemia, unspecified, I25.2 - Old myocardial infarction, I25.5 - Ischemic cardiomyopathy, M85.852 - Other specified disorders of bone density and structure, left thigh, R09.89 - Other specified symptoms and signs involving the circulatory and respiratory systems, R73.01 - Impaired fasting glucose, Z85.3 - Personal history of malignant neoplasm of breast, Z86.010 - Personal history of colonic polyps, Z95.5 - Presence of coronary angioplasty implant and graft Complete Blood Count Auto Diff Today E78.5 - Hyperlipidemia, unspecified, I25.2 - Old myocardial infarction, I25.5 - Ischemic cardiomyopathy, M85.852 - Other specified disorders of bone density and structure, left thigh, R09.89 - Other specified symptoms and signs involving the circulatory and respiratory systems, R73.01 - Impaired fasting glucose, Z85.3 - Personal history of malignant neoplasm of breast, Z86.010 - Personal history of colonic polyps, Z95.5 - Presence of coronary angioplasty implant and graft Quality Reporting (2019) Depression/Bipolar (159/160/161/177) PHQ-9: Total score: 0 Coding Level of Care Code Medicare Subsequent (G0439) Diagnoses Encounter for subsequent annual wellness visit (AWV) in Medicare patient Z00.00 History of right breast cancer Z85.3 Osteopenia of left femoral neck M85.852 History of adenomatous polyp of colon Z86.010 Hyperlipidemia LDL goal <[address] elevation myocardial infarction (STEMI) I25.2 History of heart artery stent Z95.5 Ischemic cardiomyopathy I25.5 CPT Codes Advance Care Planning - Advance Care Planning discussion: On file, no changes ([id number]) Advance Care Planning - Time spent: 1-15 minutes, on File ([id number]) Advance Care Planning Advance Care Planning discussion: On file, no changes Date of discussion: 11/12/23 Who was present: Patient Forms completed: Health Care Proxy and MOLST Time spent: 1-15 minutes, on File Actual minutes spent: 15
== END 2023-11-12 09:14 | disposition home or self-care (01) ==
PROVIDERS: PCP Internal Medicine; Visit Provider Internal Medicine
DX: Z00.00 Encounter for general adult medical examination without abnormal findings (principal); I25.2 Old myocardial infarction; E78.5 Hyperlipidemia, unspecified; M85.852 Other specified disorders of bone density and structure, left thigh; I25.5 Ischemic cardiomyopathy; Z85.3 Personal history of malignant neoplasm of breast; Z86.010 Personal history of colon polyps; Z95.5 Presence of coronary angioplasty implant and graft
CPT/HCPCS: 1123F; G0439

== ENCOUNTER 2023-11-15 08:00 | Outpatient (REF) | payer MEDICARE, SELFPAY ==
[2023-11-15 10:05] LABS: MANUAL DIFF FLAG NO
[2023-11-15 10:43] LABS: Alanine Aminotransferase 37 U/L (0-31); Alkaline Phosphatase 66 U/L (39-117); Anion Gap 13 (12-20); Aspartate Amino Transferase 34 U/L (5-31); Bilirubin Total 0.4 mg/dL (0.0-1.0); Blood Urea Nitrogen 15 mg/dL (9-16); Calcium 9.1 mg/dL (8.4-10.2); Carbon Dioxide 24 mmol/L (22-29); Chloride 110 mmol/L (96-108); Cholesterol 125 mg/dL (<200); Estimated Glomerular Filt Rate > 60; Glucose Fasting 97 mg/dL (60-99); HDL Cholesterol 56 mg/dL (>40); LDL Cholesterol Calculated 55 mg/dL (<100); Potassium 4.6 mmol/L (3.3-5.1); Sodium 142 mmol/L (135-145); Total Protein 6.7 g/dL (6.5-8.0); Triglycerides 71 mg/dL (<150)
[2023-11-15 10:46] LABS: Basophils Absolute Auto 0.1 X10*3/uL (0.0-0.2); Basophils Percent Auto 1.1 % (0-2); Eosinophils Absolute Auto 0.2 X10*3/uL (0.0-0.4); Eosinophils Percent Auto 4.2 % (0-4); Hematocrit 31.5 % (37.0-47.0); Hemoglobin 8.9 g/dl (12.0-16.0); Imm Gran Abs Auto 0.02 X10*3/uL (0.00-0.03); Imm Gran Pct Auto 0.4 % (0.0-0.4); Mean Corpuscular HGB Conc 28.3 g/dl (31.0-35.0); Mean Corpuscular Hemoglobin 19.6 pg (27.0-33.0); Mean Platelet Volume 10.4 fL (9.4-12.3); Monocytes Absolute Auto 0.6 X10*3/uL (0.1-1.2); Monocytes Percent Auto 12.3 % (2-11); Neutrophils Absolute Auto 2.9 x10*3/uL (2.0-8.3); Platelet Count 287 X10*3/uL (160-400); Red Blood Count 4.54 X10*6/uL (4.20-5.50); Red Cell Distribution Width 23.6 % (11.0-16.0); White Blood Count 4.7 X10*3/uL (4.8-10.8)
[2023-11-15 10:50] LABS: Estimated Average Glucose 105 mg/dL; Hemoglobin A1c % 5.3 % (<6.0)
[2023-11-15 10:54] LABS: Mean Corpuscular Volume 69.4 fL (80.0-98.0)
[2023-11-15 11:01] LABS: Vitamin D 25-OH Total 48.4 ng/mL (>30)
== END 2023-11-15 08:01 | disposition home or self-care (01) ==
LOC: HO.HMGCLDS 08:00
PROVIDERS: PCP Internal Medicine; Visit Provider Internal Medicine
DX: I25.5 Ischemic cardiomyopathy (principal); Z95.5 Presence of coronary angioplasty implant and graft; I25.2 Old myocardial infarction; E78.5 Hyperlipidemia, unspecified; R73.01 Impaired fasting glucose; Z86.010 Personal history of colon polyps; M85.832 Other specified disorders of bone density and structure, left forearm; Z85.3 Personal history of malignant neoplasm of breast; R09.89 Other specified symptoms and signs involving the circulatory and respiratory systems
CPT/HCPCS: 36415; 80053; 80061; 82306; 83036; 85025

== ENCOUNTER 2024-01-28 12:48 | Outpatient (REF) | payer MEDICARE, SELFPAY ==
--- NOTE | ~2024-01-28 | MM_ITS ---
EXAMINATION: MM SCREENING DIGITAL BREAST TOMOSYNTHESIS, BILATERAL CLINICAL INFORMATION: Screening. Asymptomatic. COMPARISON: Mammography: Comparison is made with available priors TECHNIQUE: Digital breast mammography with tomosynthesis is performed in both the craniocaudal and mediolateral oblique views along with computer-aided detection (CAD). FINDINGS: There are scattered areas of fibroglandular density (ACR BI-RADS breast composition Category b). Right breast post lumpectomy changes are stable. There are no significant masses, abnormal calcifications, or other abnormalities. MM/MM tomosynthesis screening BI IMPRESSION: No mammographic evidence of malignancy. ASSESSMENT: BI-RADS BI-RADS 2 - Benign Findings RECOMMENDATION: Routine annual mammography screening. 1 year F/U This examination should not preclude the clinical evaluation of a suspicious palpable abnormality. This patient's information was entered into a reminder system with a target due date for their next mammogram. Electronically signed by: Rossi Osborne DO 02/06/2024 03:13 PM [id number]
== END 2024-01-28 12:49 | disposition home or self-care (01) ==
LOC: HO.MAMMO 12:48
PROVIDERS: PCP Internal Medicine; Visit Provider Internal Medicine
DX: Z12.31 Encounter for screening mammogram for malignant neoplasm of breast (principal)
CPT/HCPCS: 77063; 77067

== ENCOUNTER → 2024-01-28 13:00 | Outpatient (BNV) | payer MEDICARE, SELFPAY | PROVIDERS: PCP Internal Medicine; Visit Provider Internal Medicine | DX: Z12.31 Encounter for screening mammogram for malignant neoplasm of breast (principal) | CPT/HCPCS: 77063; 77067 ==

== ENCOUNTER 2024-11-12 09:19 | Outpatient (AMB) | payer MEDICARE, SELFPAY ==
--- OUTSIDE RECORDS SUMMARY | 2012-12-24 | XMS_ITS | Encounter Summary ---
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
--- NOTE | 2024-11-12 10:06 | AM.OFFVISMDC ---
Intake Vital Signs 11/12/24 10:17 Height 5 ft 3 in Weight 117 lb BMI 20.7 BP 128/70 Blood Pressure Location Lt brachial Position Sitting Respiration 15 Pulse 73 Pulse Source Pulse Oximeter Temp 97.7 F Temp Source Oral Pulse Oximetry (%) 98 Oxygen Delivery Method Room Air Intake Visit Reasons: KELLY G0439 - see comments Intake Note: Pt is here today for her SWV: Last mammogram 01/28/24, bone density scan 01/19/22, colonoscopy 02/08/18 Allergies nickel (NICKEL) Allergy (Unknown, Verified 11/12/24 10:43) RASH Medication List - Last Reconciled 11/12/24 by Haily Gee MD aspirin (Adult Low Dose Aspirin) 81 mg PO DAILY atorvastatin 80 mg PO DAILY [calcium 1 tab PO DAILY] cholecalciferol (vitamin D3) (Vitamin D3) 25 mcg PO DAILY ferrous sulfate 325 mg PO BID losartan 25 mg PO DAILY metoprolol succinate ER 25 mg PO DAILY ticagrelor (Brilinta) 90 mg PO BID HPI SWV G0439 - see comments HPI Details SWV ? 74 year-old lady with past medical history for coronary artery disease, status post STEMI with cardiac stent placed, has hyperlipidemia, prediabetes, history of adenomatous colon polyp, history of right breast cancer, and osteopenia of left femoral neck, presents for her Subsequent Annual Wellness Visit.? She is up-to-date with her screening mammogram, has appointment 02/02/2025 for her repeat screening mammogram. No longer gets her Pap smears or pelvic exam. She is due for her repeat colonoscopy screening, done by Dr. Logan in 2017 referral made today her last bone density scan was done in 2021 which showed presence of normal bone density in AP lumbar spine and left femur, with mild osteopenia in left femoral neck seen. Scheduled a bone density scan to be done together with her screening mammogram in February. She is up-to-date with her flu vaccine, COVID vaccination, and pneumococcal vaccination, recommended to get vaccinated against herpes zoster . Patient however declined getting RSV vaccination She had her fasting lipid panel and fasting blood sugar screening which showed normal results, done 11/15/2023 ? Medical / Social History Reviewed? Past Medical History ?Yes . ? Brock of Care / Care Team list updated ?Yes . ? Surgical/Hospitalization History ?Yes . ? Current Medications (including OTC and supplements) ?Yes . ? Family History ?Yes . ? Tobacco Control form ?Yes . ? AUDIT-C (Alcohol use) form ?Yes . ? Illicit drug use in Social History ?Yes . ? Current diagnosis of depression? ?No ? Appropriate PHQ2/PHQ9 completed ?Yes . ? Data entered by ?Telephone Sales Agent and reviewed by provider ? Fall Risk ? Fall History? Have you had any falls with injury in the past year? ?No . ? Have you had two or more falls in the past year? ?No . ? Fall Risk Assessment: ?No falls in the past year . ? HRA filled out by the patient, reviewed by Provider and scanned. ?SWV ? Balance? Romberg negative ? Tandem walk ?Yes . ? Walk and Turn ?Yes . ? Rise from sit to stand ?Yes . ?Vision? Corrective lens ?none ? Vision screen ? Up-to-date, Yes, goes to [facility] ?Hearing? Whisper test ?pass . ?Written Plan?Completed. See Patient Documents.? Already had her MOLST done in 2021 and healthcare proxy was completed in 2020 HPI Comments History of Present Illness Details Patient also wants to have a mass in front of her right ear checked. Patient noticed it while washing her face 2 weeks ago. Denies any trauma to affected area, no pain or increased warmth noted over said lesion. Has been feeling well otherwise [facility] Medical History Left carotid bruit Ischemic cardiomyopathy History of ST elevation myocardial infarction (STEMI) Hyperlipidemia LDL goal <100 Impaired fasting glucose History of adenomatous polyp of colon Lobular carcinoma of right breast Surgical History History of heart artery stent History of surgery Hx of tonsillectomy Family History Mother Pancreatic cancer Father Heart disease Social History Household Members: Spouse Housing: House Are you a primary critical care unit manager to a significant other at home: No Do you presently have visiting nurse or other home services: No Alcohol intake: current Alcohol intake frequency: holidays/special occasions only Patient Tobacco Use Status: Never used Tobacco e-Cigarette/Vaping Use: Never Used service: No Current occupational status: retired 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 Cognitive needs: No Hearing needs: No Vision needs: Yes Female Reproductive History Menstrual Date of Mammogram: 01/28/24 Date of last Bone Density Screenin01/19/22 Questionnaire Medicare Wellness Checkup [age] What gender do you identify with?: female During the past 4 weeks, how much have you been bothered by emotional problems such as feeling anxious, depressed, irritable, sad or downhearted, and blue?: not at all During the past 4 weeks, has your physical & emotional health limited your social activities with family, friends, neighbors, or groups?: not at all During the past 4 weeks, how much bodily pain have you generally had?: no pain During the past 4 weeks, was someone available to help you if you needed & wanted help?: no, not at all During the past 4 weeks, what was the hardest physical activity you could do for at least 2 minutes?: heavy Can you get to places out of walking distance without help? (For eg., can you travel alone on buses, taxis or drive your car?): Yes Can you go shopping for groceries or clothes without someone's help?: Yes Can you prepare your own meals?: Yes Can you do your housework without help?: Yes Because of any health problems, do you need the help of another person with your personal care needs such as eating, bathing, dressing or getting around the house?: No Can you handle your own money without help?: Yes During the past 4 weeks, how would you rate your health in general?: excellent During the past 4 weeks how have things been going for you?: very well; could hardly better Are you having difficulties driving your car?: no Do you always fasten your seat belt when you are in a car?: yes, usually During past 4 weeks, have you been bothered by the following: never: Falling or dizzy when standing up, Sexual problems?, Trouble eating well?, Teeth or denture problems?, Problems using the telephone? and Tiredness or fatigue? Have you fallen 2 or more times in the past year?: No Are you afraid of falling?: No Are you a smoker?: no During the past 4 weeks, how many drinks of wine, beer, or other alcoholic beverages did you have?: 1 drink or less per week Do you exercise for about 20 minutes 3 or more times a week?: yes, all the time Have you been given information to help with the following?: no: Hazards in your house that might hurt you? and no: Keeping track of your medications? How often do you have trouble taking medicines the way you have been told to take them?: I always take medicine as prescribed How confident are you that you can control & manage most of your health problems?: very confident What is your race?: White Mini Mental State Exam (MMSE) Orientation What is the (year) (season) (date) (day) (month)?: year (2024), season (summer), date (11/12/24), day (sunday) and month (nov) Where are we (state) (county) (town or city) (hospital) (floor)?: state ([facility]), county ([place]), town or city ([place]) and hospital/clinic ([facility]) Score Score: 9 Activity of Daily Living Bathing - sponge bath, tub bath or shower: receives no assistance (gets in/out by self, if usual bathing means Dressing - getting clothes from closets & drawers, including inner/outer garments & fasteners.: gets clothes & gets completely dressed without help Toileting - going to the 'toilet room' for urine/bowel elimination & cleaning self/arranging clothes: goes to toilet room, cleans self, arranges clothes without help Transfer: moves in & out of bed and chair without help (may use support object) Continence: controls urination/bowel movements completely by self Feeding: feeds self without help Total Score: 0 Information obtained from: patient Using telephone: independent Traveling: independent Shopping: independent Preparing meals: independent Housework: independent Taking medicine: independent Managing money: independent PHQ-9 Over the last 2 weeks, how often have you been bothered by any of the following problems? 1. Little interest or pleasure in doing things: not at all 2. Feeling down, depressed, or hopeless: not at all 3. Trouble falling or staying asleep, or sleeping too much: not at all 4. Feeling tired or having little energy: not at all 5. Poor appetite or overeating: not at all 6. Feeling bad about yourself - or that you are a failure or have let yourself or your family down: not at all 7. Trouble concentrating on things, such as reading the newspaper or watching television: not at all 8. Moving or speaking so slowly that other people could have noticed. Or the opposite - being so fidgety or restless that you have been moving around a lot more than usual: not at all 9. Thoughts that you would be better off or of hurting yourself in some way: not at all Total score: 0 Depression Screening Interpretation: Negative Depression Screening Done: Yes 36959 - PHQ-9 Billing: Yes Source: Developed by Drs. Indio Swartz, Giana Mejia, Leo López and colleagues, with an educational kamala from [employer]. Review of Systems Const All systems reviewed & are unremarkable except as noted in HPI and below Denies headache(s) ENT Reports Normal hearing present, Denies dizziness, Denies ear discharge, Denies otalgia, Denies headache(s), Denies mouth lesions, Denies nasal congestion and Denies disequilibrium Neuro Reports Normal hearing present, Denies dizziness, Denies headache(s) and Denies disequilibrium Physical Exam Vital Signs: Last Vital Signs Temp 97.7 F 11/12/24 10:17 Pulse 73 11/12/24 10:17 Resp 15 11/12/24 10:17 BP 128/70 11/12/24 10:17 Pulse Ox 98 11/12/24 10:17 Oxygen Delivery Method Room Air 11/12/24 10:17 BMI result Body Mass Index 20.7 Const Other: Alert oriented x3, no acute distress noted ambulatory normal gait General: comfortable and no acute distress Nutritional Appearance: average body habitus Orientation/consciousness: patient oriented x3 HEENT Other: Nontender small mobile nodular lesion on right preauricular area Head: Yes normocephalic Ears: hearing grossly normal bilaterally, external ears normal, TM's normal bilaterally and EAC's normal Neuro General: patient oriented x3 Cranial nerves: Yes Normal hearing present Assessment & Plan Assessment & Plan (1) Encounter for subsequent annual wellness visit in Medicare patient: Code(s): Z00.00 - Encounter for general adult medical examination without abnormal findings Plan: Medical wellness checklist reviewed, discussed with patient and updated, repeat fasting lipid panel and fasting glucose ordered. Patient already has an appointment for her screening mammogram in February and added a bone density scan ordered to be done together at the same time. Referred back to Dr. Logan for her repeat colonoscopy, which is overdue up-to-date with her flu shot, pneumonia shot, reminded to get her shingles vaccination, does not want to get RSV vaccine. Up-to-date with her MOLST and healthcare proxy forms (2) Osteopenia of left femoral neck: Code(s): M85.852 - Other specified disorders of bone density and structure, left thigh Plan: Repeat bone density scan ordered to be scheduled together with screening mammogram in February this year continue with doing regular weight-bearing exercise, continue taking vitamin-D 3 supplements and take adequate calcium from dietary sources, in addition to supplemental calcium that she already takes. (3) Mass of preauricular region: Code(s): R22.0 - Localized swelling, mass and lump, head Plan: Ultrasound of soft tissue head and neck ordered (4) Impaired fasting glucose: Code(s): R73.01 - Impaired fasting glucose Plan: Insert impaired fasting glucose, fasting glucose and hemoglobin A1c order (5) Hyperlipidemia LDL goal <100: Code(s): E78.5 - Hyperlipidemia, unspecified Plan: Fasting lipid panel ordered together with liver enzymes, continued on atorvastatin 80 mg daily Orders: Orders US soft tiss head and/or neck Today R22.0 - Localized swelling, mass and lump, head Basic Metabolic Panel Fasting Today E78.5 - Hyperlipidemia, unspecified, M85.852 - Other specified disorders of bone density and structure, left thigh, R09.89 - Other specified symptoms and signs involving the circulatory and respiratory systems, R73.01 - Impaired fasting glucose, Z78.0 - Asymptomatic menopausal state Lipid Panel Today E78.5 - Hyperlipidemia, unspecified, M85.852 - Other specified disorders of bone density and structure, left thigh, R09.89 - Other specified symptoms and signs involving the circulatory and respiratory systems, R73.01 - Impaired fasting glucose, Z78.0 - Asymptomatic menopausal state Vitamin D 25-OH Total Today E78.5 - Hyperlipidemia, unspecified, M85.852 - Other specified disorders of bone density and structure, left thigh, R09.89 - Other specified symptoms and signs involving the circulatory and respiratory systems, R73.01 - Impaired fasting glucose, Z78.0 - Asymptomatic menopausal state XR DEXA axial skeleton Today M85.852 - Other specified disorders of bone density and structure, left thigh Alanine Aminotransferase Today E78.5 - Hyperlipidemia, unspecified, M85.852 - Other specified disorders of bone density and structure, left thigh, R09.89 - Other specified symptoms and signs involving the circulatory and respiratory systems, R73.01 - Impaired fasting glucose, Z78.0 - Asymptomatic menopausal state Aspartate Amino Transferase Today E78.5 - Hyperlipidemia, unspecified, M85.852 - Other specified disorders of bone density and structure, left thigh, R09.89 - Other specified symptoms and signs involving the circulatory and respiratory systems, R73.01 - Impaired fasting glucose, Z78.0 - Asymptomatic menopausal state Hemoglobin A1c Today E78.5 - Hyperlipidemia, unspecified, M85.852 - Other specified disorders of bone density and structure, left thigh, R09.89 - Other specified symptoms and signs involving the circulatory and respiratory systems, R73.01 - Impaired fasting glucose, Z78.0 - Asymptomatic menopausal state Quality Reporting (2019) Depression/Bipolar (159/160/161/177) PHQ-9: Total score: 0 Coding Level of Care Code Medicare Subsequent (G0439) Est Pt Level 4 (91289) Diagnoses Encounter for subsequent annual wellness visit in Medicare patient Z00.00 Osteopenia of left femoral neck M85.852 Mass of preauricular region R22.0 Impaired fasting glucose R73.01 Hyperlipidemia LDL goal <100 E78.5 CPT Codes Advance Care Planning - Advance Care Planning discussion: On file, no changes ([id number]) Advance Care Planning - Time spent: 1-15 minutes, on File ([id number]) Additional Codes PHQ-9 - 74425 - PHQ-9 Billing: Yes ([id number]) Advance Care Planning Advance Care Planning discussion: On file, no changes Date of discussion: 11/12/24 Who was present: Patient Forms completed: Health Care Proxy and MOLST Time spent: 1-15 minutes, on File Actual minutes spent: 1
[2024-11-12 10:17] VITALS: BP 128/70; PULSE 73; RESP 15; TEMP 36.5; O2SAT 98; BMI 20.7
--- OUTSIDE RECORDS SUMMARY | 2024-11-12 11:06 | XMS_ITS | Encounter Summary ---
Author Organization [facility] Address [address] [facility] [address] [place] [id number] Phone Care Team Providers Care Pocket Creaser Name Role Phone Haily Gee MD Primary Care Provider Encounter Details Date Type Department Care Team (Late st Contact Info) Description 01/23/2019 Ancillary Orders [facility],Outside Imaging [address] [place] [address] System, Provider Not In, [facility] [address] [address] Social History Tobacco Use Types Packs/Day Years Used Date Smoking Tobacco: Never Assessed Comments Unknown Sex and Gender Information Value Date Recorded Sex Assigned at Not on file Legal Sex Female 8:41 AM EST Gender Identity Not on file Sexual Orientation Not on file documented as of this encounter Plan of Treatment Not on file documented as of this encounter Results * Mammogram Outside (No Interpretation) (11/11/2018 12:00 AM EDT) Narrative SYSTEMGENERATED, DOCUMENTATION - 01/23/2019 12:00 PM EST This study is for PACS storage only and not for interpretation. us Provider Not In System [facility] OUTSIDE IMAGING W /OUT INTERPRETATION Final Result documented in this encounter Visit Diagnoses Not on filedocumented in this encounter Care Teams Pocket Creaser Relationship Specialty Start Date End Date Haily Gee MD [address] [facility] [place] [address] PCP - General 02/06/19 documented as of this encounter Additional Source Comments The information contained in this document represents components of the legal health record. It is not the complete legal health record.[facility]
--- OUTSIDE RECORDS SUMMARY | 2024-11-12 11:07 | XMS_ITS | Encounter Summary ---
Author Organization [facility] Address [address] [facility] [address] [place] [phone] Phone Care Team Providers Care Switchbox Assembler Name Role Phone Haily Gee MD Primary Care Provider Encounter Details Date Type Department Care Team (Late st Contact Info) Description 01/23/2019 Ancillary Orders [facility],Outside Imaging [address] [place] [address] System, Provider Not In, [facility] [address] [address] Social History Tobacco Use Types Packs/Day Years Used Date Smoking Tobacco: Never Assessed Comments Unknown Sex and Gender Information Value Date Recorded Sex Assigned at Not on file Legal Sex Female 8:41 AM EST Gender Identity Not on file Sexual Orientation Not on file documented as of this encounter Plan of Treatment Not on file documented as of this encounter Results * US Breast Outside (No Interpretation) (11/11/2018 12:05 AM EDT) Narrative SYSTEMGENERATED, DOCUMENTATION - 01/23/2019 12:01 PM EST This study is for PACS storage only and not for interpretation. us Provider Not In System [facility] OUTSIDE IMAGING W /OUT INTERPRETATION Final Result documented in this encounter Visit Diagnoses Not on filedocumented in this encounter Care Teams Switchbox Assembler Relationship Specialty Start Date End Date Haily Gee MD [address] [facility] [place] [address] PCP - General 02/06/19 documented as of this encounter Additional Source Comments The information contained in this document represents components of the legal health record. It is not the complete legal health record.[facility]
--- OUTSIDE RECORDS SUMMARY | 2024-11-12 11:07 | XMS_ITS | Patient Health Record ---
Author Organization [facility] Address [address] [place] [id number] Care Team Providers Care Retail Banking Manager Name Role Phone Gerard GAY, Haily Primary Care Provider Rolly Gillette Jr Unavailable [phone] Allergies Allergen (clinical drug ingredient) Drug/Non Drug Allergy documented on EMR Reaction Allergy Type Onset Date Status nickel Nickel Unknown Allergy Active Reason For Referral No Information Medications Medication SIG (Take, Route, Frequency, Duration) Notes Start Date End Date Status Vitamin D Active MiraLax (colon prep) 17 GM/SCOOP mixed with Gatorade or Crystal Light Orally begin at 5:00 p.m. the day before the procedure for 1 day 03/15/2023 Active Calcium Magnesium Ac tive Social History Tobacco Use: Social History Observation Description Date Details (start date - stop date) Never Smoker NA - NA Tobacco Use/Smoking Question Answer Notes Patient is a nonsmoker Alcohol Screen Question Answer Notes Did you have a drink contain ing alcohol in the past year? Yes How often did you have a dri nk containing alcohol in the past year? 2 to 4 times a month (2 points) How many drinks did you have on a typical day when you were drinking in the past year? 1 or 2 drinks (0 point) How often did you have 6 or more drinks on one occasion in the past year? Never (0 point) Points 2 Interpretation Negative Problems Problem Type SNOMED Code ICD Code Onset Dates Problem Status W/U Status Risk Notes Problem [id number] Colon cancer screening (Z12.11) Active confirmed Problem 23141376 Encounter for other preprocedural examination (Z01.818) Active confirmed Plan Of Treatment Future Test Test Name Order Date COLONOSCOPY 10/03/2017 COLONOSCOPY 03/15/2023 Insurance Providers Payer Name Payer Address Payer Phone Subscriber Number Group Number Insured Name Patient Relationship to Insured Coverage Start Date Coverage End Date [employer] [facility] [address] [place] [address] [id number] SUSHIL SOSA Self - patient is the insured Medical (General) History Medical History History ICD Code Osteopenia 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
--- OUTSIDE RECORDS SUMMARY | 2024-11-12 11:07 | XMS_ITS | Clinical Summary ---
Author Organization [facility] Address [address] [facility] [address] [place] [address] Phone Care Team Providers Care Band Booker Name Role Phone Haily Gee MD Primary Care Provider Allergies No known active allergies Medications calcium carbonate-vitami n D3 1,250 mg (500 mg elemental)-400 units per tablet Take 1 tablet by mouth daily. Active Active Problems Problem Noted Date Diagnosed Date Malignant neoplasm of upper- outer quadrant of right breast in female, estrogen receptor positive 02/08/2019 Family History Medical History Relation Comments Cancer Mother Relation Status Comments Mother pancreatic cance r 25 yrs ago Social History Tobacco Use Types Packs/Day Years [...] on file Sexual Orientation Not on file Last Filed Vital Signs Vital Sign Reading Time Taken Comments Blood Pressure 138/70 05/01/2019 11:54 AM EST Pulse 80 05/01/2019 11:54 AM EST Temperature 36.8 C (98.2 F) 02/06/2019 1:12 PM EST Respiratory Rate 16 02/06/2019 1:12 PM EST Oxygen Saturation 97% 05/01/2019 11:54 AM EST Inhaled Oxygen Concentration - - Weight 53.2 kg (117 lb 3.2 oz) 05/01/2019 11:54 AM EST Height - - Body Mass Index - - Plan of Treatment Health Maintenance Due Date Last Done Comments Adult Td,Tdap Booster 1949 LIPID PANEL 1949 DEPRESSION SCREENING 1961 SMOKING Hx and SMOKELESS TOBACCO SCREENING 1962 HEPATITIS C SCREENING 07/06/1967 ZOSTER VACCINES (1 of 2) 1968 COLOGUARD 1994 COLONOSCOPY 1994 COLORECTAL CANCER SCREENING 1994 FIT TEST 1994 FOBT 1994 SIGMOIDOSCOPY 1994 VIRTUAL COLONOSCOPY 1994 OSTEOPOROSIS SCREENING INITI AL (ONE-TIME) 2014 PNEUMOCOCCAL VACCINES (50+ years) (2 of 2 - PCV) 09/13/2019 09/12/2018 RSV VACCINE (1 - 1-dose 75+ series) 2024 INFLUENZA VACCINE (#1) 2024 9, 12/23/2015, 12/26/2013 COVID-19 VACCINE (2 - 2024-2 6 season) 2024 05/24/2020 HEPATITIS A VACCINES Aged Out No long er eligible based on patient's age to complete this topic HIB VACCINES Aged Out No longer eligi ble based on patient's age to complete this topic MENINGOCOCCAL VACCINES (ACWY) Aged Out No longer eligible based on patient's age to complete this topic MENINGOCOCCAL VACCINES (B) Aged Out N o longer eligible based on patient's age to complete this topic Medical Devices Not on file Insurance [facility] [[email or web address] [place] [address] [place] [address] HMO POS [facility] [[email or web address] HMO POS [facility] [[email or web address] [place] [address] [place] [address] [place] [address] [place] [address] [place] [address] [place] [address] HMO POS [email or web address] HMO POS [facility] [[email or web address] HMO POS Care Teams Band Booker Relationship Specialty Start Date End Date Haily Gee MD [address] [place] [address] PCP - General 02/06/19 Additional Source Comments The information contained in this document represents components of the legal health record. It is not the complete legal health record.[facility]
--- OUTSIDE RECORDS SUMMARY | 2024-11-12 11:07 | XMS_ITS | Encounter Summary ---
Author Organization [facility] Address [address] [facility] [address] [place] [address] Phone Care Team Providers Care Gis Specialist Name Role Phone Haily Gee MD Primary Care Provider Encounter Details Date Type Department Care Team (Late st Contact Info) Description 01/23/2019 Ancillary Orders [facility],Outside Imaging [address] [place] [address] System, Provider Not In, PhD [facility] [address] [address] Social History Tobacco Use Types Packs/Day Years Used Date Smoking Tobacco: Never Assessed Comments Unknown Sex and Gender Information Value Date Recorded Sex Assigned at Not on file Legal Sex Female 8:41 AM EST Gender Identity Not on file Sexual Orientation Not on file documented as of this encounter Plan of Treatment Not on file documented as of this encounter Results * DXA Outside (No Interpretation) (10/31/2018 12:05 AM EDT) Narrative SYSTEMGENERATED, DOCUMENTATION - 01/23/2019 12:03 PM EST This study is for PACS storage only and not for interpretation. us Provider Not In System PhD IMG OUTSIDE IMAGING W /OUT INTERPRETATION Final Result documented in this encounter Visit Diagnoses Not on filedocumented in this encounter Care Teams Gis Specialist Relationship Specialty Start Date End Date Haily eGe MD [address] [facility] [place] [address] PCP - General 02/06/19 documented as of this encounter Additional Source Comments The information contained in this document represents components of the legal health record. It is not the complete legal health record.[facility]
--- OUTSIDE RECORDS SUMMARY | 2024-11-12 11:07 | XMS_ITS | Encounter Summary ---
Author Organization [facility] Address [address] [facility] [address] [place] [address] Phone Care Team Providers Care Packager Or Packer And Weigher Name Role Phone Haily Gee MD Primary Care Provider Encounter Details Date Type Department Care Team (Late st Contact Info) Description 01/23/2019 Ancillary Orders [facility],Outside Imaging [address] [place] [address] System, Provider Not In, PhD [facility] [address] [address] Social History Tobacco Use Types Packs/Day Years [...] on filedocumented in this encounter Care Teams Packager Or Packer And Weigher Relationship Specialty Start Date End Date Haily Gee MD [address] [place] [address] PCP - General 02/06/19 documented as of this encounter Additional Source Comments The information contained in this document represents components of the legal health record. It is not the complete legal health record.[facility]
--- OUTSIDE RECORDS SUMMARY | 2024-11-12 11:07 | XMS_ITS | Encounter Summary ---
Author Organization [facility] Address [address] [facility] [address] [place] [address] Phone Care Team Providers Care Crystal Grower Name Role Phone Haily Gee MD Primary Care Provider Encounter Details Date Type Department Care Team (Late st Contact Info) Description 01/23/2019 Ancillary Orders [facility],Outside Imaging [address] [place] [address] System, Provider Not In, PhD [facility] [address] [address] Social History Tobacco Use Types Packs/Day Years [...] Results * US Breast Outside (No Interpretation) (11/20/2018 12:05 AM EDT) Narrative SYSTEMGENERATED, DOCUMENTATION - 01/23/2019 11:59 AM EST This study is for PACS storage only and not for interpretation. us Provider Not In System PhD IMG OUTSIDE IMAGING W /OUT INTERPRETATION Final Result documented in this encounter Visit Diagnoses Not on filedocumented in this encounter Care Teams Crystal Grower Relationship Specialty Start Date End Date Haily Gee MD [address] [facility] [place] [address] PCP - General 02/06/19 documented as of this encounter Additional Source Comments The information contained in this document represents components of the legal health record. It is not the complete legal health record.[facility]
--- OUTSIDE RECORDS SUMMARY | 2024-11-12 11:07 | XMS_ITS | Encounter Summary ---
Author Organization [facility] Address [address] [facility] [address] [place] [address] Phone Care Team Providers Care General Manager [employer] Data Cloud Name Role Phone Haily Gee MD Primary Care Provider Encounter Details Date Type Department Care Team (Late st Contact Info) Description 01/23/2019 Ancillary Orders [facility],Outside Imaging [address] [place] [address] System, Provider Not In, PhD Partners [address] [address] Social History Tobacco Use Types Packs/Day Years [...] encounter Results * Mammogram Outside (No Interpretation) (10/31/2018 12:00 AM EDT) Narrative SYSTEMGENERATED, DOCUMENTATION - 01/23/2019 12:02 PM EST This study is for PACS storage only and not for interpretation. us Provider Not In System PhD IMG OUTSIDE IMAGING W /OUT INTERPRETATION Final Result documented in this encounter Visit Diagnoses Not on filedocumented in this encounter Care Teams General Manager [employer] Data Cloud Relationship Specialty Start Date End Date Haily Gee MD [address] [place] [address] PCP - General 02/06/19 documented as of this encounter Additional Source Comments The information contained in this document represents components of the legal health record. It is not the complete legal health record.[facility]
--- OUTSIDE RECORDS SUMMARY | 2024-11-12 11:07 | XMS_ITS | Encounter Summary ---
Author Organization [facility] Address [address] [facility] [address] [place] [address] Phone Care Team Providers Care Metal Painter Name Role Phone Haily Gee MD Primary Care Provider Encounter Details Date Type Department Care Team (Late st Contact Info) Description 01/23/2019 Ancillary Orders [facility],Outside Imaging 30 [place] [address] System, Provider Not In, PhD [facility] [address] [address] Social History Tobacco Use Types Packs/Day Years Used Date Smoking Tobacco: Never Assessed Comments Unknown Sex and Gender Information Value Date Recorded Sex Assigned at Not on file Legal Sex Female 8:41 AM EST Gender Identity Not on file Sexual Orientation Not on file documented as of this encounter Plan of Treatment Not on file documented as of this encounter Results * NM Bone Outside (No Interpretation) (12/24/2018 12:00 AM EDT) Narrative SYSTEMGENERATED, DOCUMENTATION - 01/23/2019 11:57 AM EST This study is for PACS storage only and not for interpretation. us Provider Not In System PhD IMG OUTSIDE IMAGING W /OUT INTERPRETATION Final Result documented in this encounter Visit Diagnoses Not on filedocumented in this encounter Care Teams Metal Painter Relationship Specialty Start Date End Date Haily Gee MD [address] [facility] [place] [address] PCP - General 02/06/19 documented as of this encounter Additional Source Comments The information contained in this document represents components of the legal health record. It is not the complete legal health record.[facility]
--- OUTSIDE RECORDS SUMMARY | 2024-11-12 11:07 | XMS_ITS | Encounter Summary ---
Author Organization [facility] Address [address] [facility] [address] [place] [phone] Phone Care Team Providers Care Loss Control Consultant Name Role Phone Haily Gee MD Primary Care Provider Encounter Details Date Type Department Care Team (Late st Contact Info) Description 01/23/2019 Ancillary Orders [facility],Outside Imaging [address] [place] [address] System, Provider Not In, PhD [facility] [address] [address] Social History Tobacco Use Types Packs/Day Years [...] encounter Results * Mammogram Outside (No Interpretation) (11/20/2018 12:00 AM EDT) Narrative SYSTEMGENERATED, DOCUMENTATION - 01/23/2019 11:58 AM EST This study is for PACS storage only and not for interpretation. us Provider Not In System PhD IMG OUTSIDE IMAGING W /OUT INTERPRETATION Final Result documented in this encounter Visit Diagnoses Not on filedocumented in this encounter Care Teams Loss Control Consultant Relationship Specialty Start Date End Date Haily Gee MD [address] [facility] [address] PCP - General 02/06/19 documented as of this encounter Additional Source Comments The information contained in this document represents components of the legal health record. It is not the complete legal health record.[facility]
== END 2024-11-12 11:02 | disposition home or self-care (01) ==
LOC: HO.HMCC 09:22
PROVIDERS: PCP Internal Medicine; Visit Provider Internal Medicine
DX: Z00.00 Encounter for general adult medical examination without abnormal findings (principal); R22.0 Localized swelling, mass and lump, head; M85.852 Other specified disorders of bone density and structure, left thigh; R73.01 Impaired fasting glucose; E78.5 Hyperlipidemia, unspecified

== ENCOUNTER → 2024-11-12 09:19 | Outpatient (BNVA) | payer MEDICARE, SELFPAY | PROVIDERS: PCP Internal Medicine; Visit Provider Internal Medicine | DX: Z00.00 Encounter for general adult medical examination without abnormal findings (principal); R22.0 Localized swelling, mass and lump, head; M85.852 Other specified disorders of bone density and structure, left thigh; R73.01 Impaired fasting glucose; E78.5 Hyperlipidemia, unspecified | CPT/HCPCS: 96127; 99212 ==

== ENCOUNTER 2024-11-13 08:03 | Outpatient (REF) | payer MEDICARE, SELFPAY ==
--- NOTE | ~2024-11-13 | US_ITS ---
EXAMINATION: US Soft Tiss Head And/or Neck CLINICAL INFORMATION: Nodular mass right preauricular area, nontender to palpation, firm,. COMPARISON: None available. TECHNIQUE: Linear transducer lozoya-scale and color Doppler examination with attention to the region of the right ear. FINDINGS: There is a reniform shaped hypoechoic circumscribed mass with increased through transmission noted just deep to the skin. It measures 8 x 9 x 15 mm. On color Doppler, it demonstrates a central hilum with blood flow. US/US soft tiss head and/or neck IMPRESSION: Right periauricular mass is most consistent with a lymph node that is at the upper limits of normal for size. The lymph node is hypoechoic with increased through transmission which can be seen with lymphoma. However, since the lymph node is not grossly enlarged, this somewhat decreases suspicion. Differential consideration includes a reactive hyperplastic node. If lymph node further enlarges, biopsy with flow cytometry of the specimen should be considered. Electronically signed by: Clint Mills MD 11/13/2024 12:50 PM EDT
[2024-11-13 10:34] LABS: Hemoglobin A1C 130.5598 umol/L; Total Hemoglobin (HGBA1C) 3663.4160 umol/L
[2024-11-13 11:46] LABS: Alanine Aminotransferase 33 U/L (0-31); Anion Gap 13 (12-20); Aspartate Amino Transferase 28 U/L (5-31); Blood Urea Nitrogen 12 mg/dL (9-16); Calcium 9.1 mg/dL (8.4-10.2); Carbon Dioxide 28 mmol/L (22-29); Chloride 107 mmol/L (96-108); Cholesterol 145 mg/dL (<200); Estimated Glomerular Filt Rate > 60; HDL Cholesterol 56 mg/dL (>40); Potassium 5.0 mmol/L (3.3-5.1); Sodium 143 mmol/L (135-145); Triglycerides 68 mg/dL (<150)
== END 2024-11-13 08:04 | disposition home or self-care (01) ==
LOC: HO.HMGCX 08:03
PROVIDERS: PCP Internal Medicine; Visit Provider Internal Medicine
DX: R22.0 Localized swelling, mass and lump, head (principal); R09.89 Other specified symptoms and signs involving the circulatory and respiratory systems; E78.5 Hyperlipidemia, unspecified; R73.01 Impaired fasting glucose; M85.852 Other specified disorders of bone density and structure, left thigh; Z78.0 Asymptomatic menopausal state
CPT/HCPCS: 36415; 76536; 80048; 80061; 82306; 83036; 84450; 84460

== ENCOUNTER → 2024-11-13 11:03 | Outpatient (BNV) | payer MEDICARE, SELFPAY | PROVIDERS: PCP Internal Medicine; Visit Provider Radiology Diagnostic Radiology | DX: R22.0 Localized swelling, mass and lump, head (principal) | CPT/HCPCS: 76536 ==

== ENCOUNTER 2024-12-30 09:26 | Outpatient (AMB) | payer MEDICARE, SELFPAY ==
--- OUTSIDE RECORDS SUMMARY | 2012-12-24 | XMS_ITS | Encounter Summary ---
Author Organization [facility] Address [address] [facility] [address] [place] [phone] Phone Care Team Providers Care Residential Treatment Specialist Name Role Phone Unavailable Primary Care Provider Unavailabl e Encounter Details Date Type Department Care Team (Late st Contact Info) Description 12/24/2012 Hospital Encounter [facility],Outside Imaging [address] [place] [address] System, Provider Not In, [facility] [address] [address] Social History Tobacco Use Types Packs/Day Years [...] is not the complete legal health record.[facility]
--- NOTE | 2024-12-30 09:34 | MHC.OFFVIS ---
Vital Signs 12/30/24 09:47 Height 5 ft 3 in Weight 119 lb 2 oz BMI 21.1 Pulse 62 Intake Visit Reasons: Right periauricular mass/lymph node Intake Note: Patient is seen in office for evaluation of a right ear mass. Pt c/o: onset 3 months, denies increase/decrease, no discharge, redness, infections, no prior mass in the past seen by KHOI Berkowitz (breast) Restaurant Maintenance Technician Required: No Accompanied by: Self / Same As Patient Allergies nickel (NICKEL) Allergy (Unknown, Verified 12/30/24 09:45) RASH Medication List - Last Reconciled 12/30/24 by Donny Mariee MD aspirin (Adult Low Dose Aspirin) 81 mg PO DAILY atorvastatin 80 mg PO DAILY [calcium 1 tab PO DAILY] cholecalciferol (vitamin D3) (Vitamin D3) 25 mcg PO DAILY losartan 25 mg PO DAILY metoprolol succinate ER 25 mg PO DAILY HPI Comments Details: 74-year-old female patient presenting with a lump located in front of the right ear. This was 1st noted several months ago on self-examination. She denies any pain or associated urine or oral infections. Denies any prior surgery in this location. She denies fever, chills, anorexia, weight loss or any other associated symptoms. An ultrasound of the head and neck revealed a right periauricular mass most consistent with a lymph node that is in the upper limits of normal for size. The lymph node is hypoechoic with increased through transmission which can be seen with lymphoma. She has a prior history of right breast cancer. [facility] Medical History Left carotid bruit Ischemic cardiomyopathy History of ST elevation myocardial infarction (STEMI) Hyperlipidemia LDL goal <100 Impaired fasting glucose History of adenomatous polyp of colon Lobular carcinoma of right breast Surgical History History of heart artery stent History of surgery Hx of tonsillectomy Family History Mother Pancreatic cancer Father Heart disease Social History Household Members: Spouse Housing: House Are you a primary healthcare or medical to a significant other at home: No Do you presently have visiting nurse or other home services: No Alcohol intake: current Alcohol intake frequency: holidays/special occasions only Patient Tobacco Use Status: Never used Tobacco e-Cigarette/Vaping Use: Never Used service: No Current occupational status: retired 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 Palpable mass noted at the angle of the mandible below the ear, superficial but not attached to the dermis. Ears: hearing grossly normal bilaterally Resp Effort & Inspection: normal respiratory effort, no audible wheezes, no cough and no respiratory distress Cardio Jugular venous distension: no JVD GI Inspection: Yes normal to inspection Skin Other: Warm, dry, no rash Neuro General: patient oriented x3 Extrem General: Yes no clubbing, cyanosis or edema Assessment & Plan Assessment & Plan (1) History of right breast cancer: Code(s): Z85.3 - Personal history of malignant neoplasm of breast Category: Medical (2) Enlarged lymph node in neck: Code(s): R59.0 - Localized enlarged lymph nodes Category: Medical Plan 74-year-old female patient presenting with a recent development of a lump located in the right periauricular region. This appears to be a lymph node by ultrasound. Other possibilities parotid mass given its location. We discussed options of continued observation with repeat ultrasound verses ultrasound-guided needle biopsy, verses excision. I recommended an ultrasound-guided biopsy and she is in agreement. She will return following this biopsy to discuss the results and review treatment options. Orders: Orders US biopsy lymph node Today R59.0 - Localized enlarged lymph nodes, Z85.3 - Personal history of malignant neoplasm of breast Coding Level of Care Code New Pt Level 4 (09303) Diagnoses History of right breast cancer Z85.3 Enlarged lymph node in neck R59.0
[2024-12-30 09:47] VITALS: PULSE 62; BMI 21.1
--- OUTSIDE RECORDS SUMMARY | 2024-12-30 10:46 | XMS_ITS | Encounter Summary ---
Author Organization [facility] Address [address] [facility] [address] [place] [address] Phone Care Team Providers Care Catering Server Name Role Phone Haily Gee MD Primary Care Provider Encounter Details Date Type Department Care Team (Late st Contact Info) Description 01/23/2019 Ancillary Orders [facility],Outside Imaging 30 [place] [address] System, Provider Not In, PhD Partners [address] [address] Social History Tobacco Use Types Packs/Day Years [...] on filedocumented in this encounter Care Teams Catering Server Relationship Specialty Start Date End Date Haily Gee MD [address] [facility] [place] [address] PCP - General 02/06/19 documented as of this encounter Additional Source Comments The information contained in this document represents components of the legal health record. It is not the complete legal health record.[facility]
--- OUTSIDE RECORDS SUMMARY | 2024-12-30 10:46 | XMS_ITS | Encounter Summary ---
Author Organization [facility] Address [address] [facility] [address] [place] [address] Phone Care Team Providers Care Television Servicer Name Role Phone Haily Gee MD Primary Care Provider Encounter Details Date Type Department Care Team (Late st Contact Info) Description 01/23/2019 Ancillary Orders [facility],Outside Imaging [address] [place] [address] System, Provider Not In, PhD Partners [address] [address] Social History Tobacco Use Types Packs/Day Years [...] on filedocumented in this encounter Care Teams Television Servicer Relationship Specialty Start Date End Date Haily Gee MD [address] [place] [address] PCP - General 02/06/19 documented as of this encounter Additional Source Comments The information contained in this document represents components of the legal health record. It is not the complete legal health record.[facility]
--- OUTSIDE RECORDS SUMMARY | 2024-12-30 10:46 | XMS_ITS | Encounter Summary ---
Author Organization [facility] Address [address] [facility] [address] [place] [address] Phone Care Team Providers Care Cap Blocker Name Role Phone Haily Gee MD Primary Care Provider Encounter Details Date Type Department Care Team (Late st Contact Info) Description 01/23/2019 Ancillary Orders [facility],Outside Imaging [address] [place] [address] System, Provider Not In, PhD Partners [address] [address] Social History Tobacco Use Types Packs/Day Years [...] on filedocumented in this encounter Care Teams Cap Blocker Relationship Specialty Start Date End Date Haily Gee MD [address] [place] [address] PCP - General 02/06/19 documented as of this encounter Additional Source Comments The information contained in this document represents components of the legal health record. It is not the complete legal health record.[facility]
--- OUTSIDE RECORDS SUMMARY | 2024-12-30 10:46 | XMS_ITS | Encounter Summary ---
Author Organization [facility] Address [address] [facility] [address] [place] [address] Phone Care Team Providers Care Tool And Die Maker Level Five Name Role Phone Haily Gee MD Primary Care Provider Encounter Details Date Type Department Care Team (Late st Contact Info) Description 01/23/2019 Ancillary Orders [facility],Outside Imaging [address] [place] [address] System, Provider Not In, PhD Partners [address] [address] Social History Tobacco Use Types Packs/Day Years [...] on filedocumented in this encounter Care Teams Tool And Die Maker Level Five Relationship Specialty Start Date End Date Haily Gee MD [address] [facility] [place] [address] PCP - General 02/06/19 documented as of this encounter Additional Source Comments The information contained in this document represents components of the legal health record. It is not the complete legal health record.[facility]
--- OUTSIDE RECORDS SUMMARY | 2024-12-30 10:46 | XMS_ITS | Encounter Summary ---
Author Organization [facility] Address [address] [facility] [address] [place] [address] Phone Care Team Providers Care Puzzle Assembler Name Role Phone Haily Gee MD Primary Care Provider Encounter Details Date Type Department Care Team (Late st Contact Info) Description 01/23/2019 Ancillary Orders [facility],Outside Imaging [address] [place] [address] System, Provider Not In, PhD Partners [address] [address] Social History Tobacco Use Types Packs/Day Years [...] on filedocumented in this encounter Care Teams Puzzle Assembler Relationship Specialty Start Date End Date Haily Gee MD [address] [facility] [place] [address] PCP - General 02/06/19 documented as of this encounter Additional Source Comments The information contained in this document represents components of the legal health record. It is not the complete legal health record.[facility]
--- OUTSIDE RECORDS SUMMARY | 2024-12-30 10:47 | XMS_ITS | Clinical Summary ---
Author Organization [facility] Address [address] [facility] [address] [place] [address] Phone Care Team Providers Care Appointment Scheduler Name Role Phone Haily Gee MD Primary [...] topic Medical Devices Not on file Insurance [facility] [place] [address] [place] [address] HMO POS [facility] HMO POS [facility] [place] [address] [place] [address] [place] [address] [place] [address] [place] [address] [place] [address] HMO POS [facility] HMO POS [facility] HMO POS Care Teams Appointment Scheduler Relationship Specialty Start Date End Date Haily Gee MD [address] [facility] [place] [address] PCP - General 02/06/19 Additional Source Comments The information contained in this document represents components of the legal health record. It is not the complete legal health record.[facility]
--- OUTSIDE RECORDS SUMMARY | 2024-12-30 10:47 | XMS_ITS | Encounter Summary ---
Author Organization [facility] Address [address] [facility] [address] [place] [address] Phone Care Team Providers Care Commodity Management Specialist Name Role Phone Haily Gee MD Primary Care Provider Encounter Details Date Type Department Care Team (Late st Contact Info) Description 01/23/2019 Ancillary Orders [facility],Outside Imaging [address] [place] [address] System, Provider Not In, PhD Partners [address] [address] Social History Tobacco Use Types Packs/Day Years [...] on filedocumented in this encounter Care Teams Commodity Management Specialist Relationship Specialty Start Date End Date Haily Gee MD [address] [facility] [place] [address] PCP - General 02/06/19 documented as of this encounter Additional Source Comments The information contained in this document represents components of the legal health record. It is not the complete legal health record.[facility]
--- OUTSIDE RECORDS SUMMARY | 2024-12-30 10:47 | XMS_ITS | Encounter Summary ---
Author Organization [facility] Address [address] [facility] [address] [place] [address] Phone Care Team Providers Care Retail Sales Clerk Name Role Phone Haily Gee MD Primary Care Provider Encounter Details Date Type Department Care Team (Late st Contact Info) Description 01/23/2019 Ancillary Orders [facility],Outside Imaging 30 [place] [address] System, Provider Not In, PhD [facility] [address] [address] Social History Tobacco Use Types Packs/Day Years [...] on filedocumented in this encounter Care Teams Retail Sales Clerk Relationship Specialty Start Date End Date Haily Gee MD [address] [place] [address] PCP - General 02/06/19 documented as of this encounter Additional Source Comments The information contained in this document represents components of the legal health record. It is not the complete legal health record.[facility]
--- OUTSIDE RECORDS SUMMARY | 2024-12-30 10:47 | XMS_ITS | Encounter Summary ---
Author Organization [facility] Address [address] [facility] [address] [place] [address] Phone Care Team Providers Care Asset Protection Assistant Name Role Phone Haily Gee MD Primary Care Provider Encounter Details Date Type Department Care Team (Late st Contact Info) Description 01/23/2019 Ancillary Orders [facility],Outside Imaging 30 [place] [address] System, Provider Not In, PhD [facility] [address] [address] Social History Tobacco Use Types Packs/Day Years [...] on filedocumented in this encounter Care Teams Asset Protection Assistant Relationship Specialty Start Date End Date Haily Gee MD [address] [facility] [place] [address] PCP - General 02/06/19 documented as of this encounter Additional Source Comments The information contained in this document represents components of the legal health record. It is not the complete legal health record.[facility]
== END 2024-12-30 10:08 | disposition home or self-care (01) ==
LOC: HO.HGS 09:27
PROVIDERS: PCP Internal Medicine; Visit Provider Surgery
DX: Z85.3 Personal history of malignant neoplasm of breast (principal); R59.0 Localized enlarged lymph nodes
CPT/HCPCS: 99204

== ENCOUNTER → 2024-12-30 09:26 | Outpatient (BNVA) | payer MEDICARE, SELFPAY | PROVIDERS: PCP Internal Medicine; Visit Provider Surgery | DX: R59.0 Localized enlarged lymph nodes (principal); Z85.3 Personal history of malignant neoplasm of breast | CPT/HCPCS: 99202 ==

== ENCOUNTER 2025-01-23 12:44 | Outpatient (REF) | payer MEDICARE, SELFPAY ==
--- OUTSIDE RECORDS SUMMARY | 2012-12-23 23:00 | XMS_ITS | Encounter Summary ---
Author Organization [facility] Address [address] [facility] [address] [place] [phone] Phone Care Team Providers Care Raw Sampler Name Role Phone Unavailable Primary Care Provider Unavailabl e Encounter Details Date Type Department Care Team (Late st Contact Info) Description 12/24/2012 Hospital Encounter [facility],Outside Imaging [address] [place] [address] System, Provider Not In, [facility] [address] [address] Social History Tobacco Use Types Packs/Day Years Used Date Smoking Tobacco: Former Smokeless Tobacco: Never Alcohol Use Standard Drinks/Week Comments Yes 2 (1 standard drink = 0.6 oz pur e alcohol) Education Answer Date Recorded Are you interested in more education? Not on jero e 06/30/2022 Are you concerned about learning? Not on file 06/30/2022 No 06/30/2022 No 06/30/2022 Digital Access Answer Date Recorded No 07/29/2022 No 07/29/2022 No 07/29/2022 Reliable internet access at home? Not on file 07/29/2022 Device with a working camera? Not on file Comments Unknown Sex and Gender Information Value Date Recorded Sex Assigned at Not on file Legal Sex Female 8:41 AM EST Gender Identity Not on file Sexual Orientation Not on file documented as of this encounter Plan of Treatment Not on file documented as of this encounter Procedures Procedure Name Priority Date/Time Associated Diagnosis Comments BI MAMMOGRAM OUTSIDE (NO INTERPRETATION) Routine 12/24/2012 12:00 AM EDT documented in this encounter Results * Mammogram Outside (No Interpretation) (12/24/2012 12:00 AM EDT) Narrative SYSTEMGENERATED, DOCUMENTATION - 01/23/2019 10:53 AM EST This study is for PACS storage only and not for interpretation. us Provider Not In System [facility] OUTSIDE IMAGING W /OUT INTERPRETATION Final Result documented in this encounter Visit Diagnoses Not on filedocumented in this encounter Additional Source Comments The information contained in this document represents components of the legal health record. It is not the complete legal health record.[facility]
--- NOTE | ~2025-01-23 | US_ITS ---
EXAMINATION: US GUIDED LYMPH NODE BIOPSY HISTORY: Z85.3 - Personal history of malignant neoplasm of breast COMPARISON: Previous head and neck soft tissue ultrasound November 13, 2024 Technique: Procedure risks and benefits including bleeding, infection and inflammation of the parotid gland were discussed with the patient and informed consent was obtained. The right preauricular face was prepped and draped in the usual sterile fashion. The skin and soft tissues were anesthetized with 1% lidocaine plain. Using ultrasound guidance and a 25-gauge needle, 4 25-gauge FNA specimens were obtained. Findings were placed in CytoLyt and flow cytometry solution. FINDINGS: There is a 1.4 x 0.8 x 1.3 cm solid hypoechoic lesion that was targeted for fine-needle aspiration. This is similar to November 2024 exam. This may be in the superficial lobe of the right parotid gland. US/US biopsy lymph node IMPRESSION: Ultrasound-guided fine-needle aspiration of soft tissue mass in the right preauricular region. Electronically signed by: Azeb Aviles MD 01/23/2025 03:24 PM [facility]
--- OUTSIDE RECORDS SUMMARY | 2025-01-23 13:06 | XMS_ITS | Patient Health Record ---
Author Organization [facility] Address [address] [place] [phone] Care Team Providers Care Breast Puller Name Role Phone Gerard GAY, Haily Primary Care Provider Rolly Gillette Jr Unavailable [phone] Allergies Allergen (clinical drug ingredient) Drug/Non Drug Allergy documented on EMR Reaction Allergy Type Onset Date Status nickel Nickel Unknown Allergy Active Reason For Referral No Information Medications Medication SIG (Take, Route, Frequency, Duration) Notes Start Date End Date Status Vitamin D Active MiraLax (colon prep) 17 GM/SCOOP Powder mixed with Gatorade or Crystal Light Orally begin at 5:00 p.m. the day before the procedure; Duration: 1 day 03/15/2023 Active Calcium Magnesium Ac tive Social History Tobacco Use: Social History Observation Description Date Details (start date - stop date) Never Smoker NA - NA Social History Drugs/Alcohol: Social Info Question Answer Notes Alcohol Screen Did you have a drink containing alcohol in the past year? Yes How often did you have a drink containing alcohol in the past year? 2 to 4 times a month (2 points) How many drinks did you have on a typical day when you were drinking in the past year? 1 or 2 drinks (0 point) How often did you have 6 or more drinks on one occasion in the past year? Never (0 point) Points 2 Interpretation Negative Tobacco Use: Social Info Question Answer Notes Tobacco Use/Smoking Patient is a nonsmoker Additional Details Category Social Info Options Details Miscellaneous: Marital status: Occupation: retired Problems Problem Type SNOMED Code ICD Code Onset Dates Problem Status W/U Status Risk Notes Problem Colon cancer screening (911188122) Colon cancer screening (Z12.11) Active confirmed Problem Pre-procedure evaluation check (905821503) Encounter for other preprocedural examination (Z01.818) Active confirmed Plan Of Treatment Future Test Test Name Order Date COLONOSCOPY 10/03/2017 COLONOSCOPY 03/15/2023 Insurance Providers Payer Name Payer Address Payer Phone Subscriber Number Group Number Insured Name Patient Relationship to Insured Coverage Start Date Coverage End Date [facility] [address] [place] [address] [id number] SUSHIL SOSA Self - patient is the insured Medical (General) History Medical History History ICD Code Osteopenia 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
--- OUTSIDE RECORDS SUMMARY | 2025-01-23 13:06 | XMS_ITS | Encounter Summary ---
Author Organization [facility] Address [address] [facility] [address] [place] [address] Phone Care Team Providers Care Scoreboard Operator Name Role Phone Haily Gee MD Primary Care Provider Encounter Details Date Type Department Care Team (Late st Contact Info) Description 01/23/2019 Ancillary Orders [facility],Outside Imaging 30 [place] [address] System, Provider Not In, PhD Partners [address] [address] Social History Tobacco Use Types Packs/Day Years [...] on filedocumented in this encounter Care Teams Scoreboard Operator Relationship Specialty Start Date End Date Haily Gee MD [address] [facility] [place] [address] PCP - General 02/06/19 documented as of this encounter Additional Source Comments The information contained in this document represents components of the legal health record. It is not the complete legal health record.[facility]
--- OUTSIDE RECORDS SUMMARY | 2025-01-23 13:06 | XMS_ITS | Encounter Summary ---
Author Organization [facility] Address [address] [facility] [address] [place] [address] Phone Care Team Providers Care Bolt Loader Name Role Phone Haily Gee MD Primary Care Provider Encounter Details Date Type Department Care Team (Late st Contact Info) Description 01/23/2019 Ancillary Orders [facility],Outside Imaging 30 [place] [address] System, Provider Not In, PhD Partners [address] [address] Social History Tobacco Use Types Packs/Day Years [...] on filedocumented in this encounter Care Teams Bolt Loader Relationship Specialty Start Date End Date Haily Gee MD [address] [facility] [place] [address] PCP - General 02/06/19 documented as of this encounter Additional Source Comments The information contained in this document represents components of the legal health record. It is not the complete legal health record.[facility]
--- OUTSIDE RECORDS SUMMARY | 2025-01-23 13:06 | XMS_ITS | Encounter Summary ---
Author Organization [facility] Address [address] [facility] [address] [place] [address] Phone Care Team Providers Care [employer] Flatbed Truck Driver Name Role Phone Haily Gee MD Primary Care Provider Encounter Details Date Type Department Care Team (Late st Contact Info) Description 01/23/2019 Ancillary Orders [facility],Outside Imaging 30 [place] [address] System, Provider Not In, PhD Partners [address] [address] Social History Tobacco Use Types Packs/Day Years [...] on filedocumented in this encounter Care Teams Regional [employer] Flatbed Truck Driver Relationship Specialty Start Date End Date Haily Gee MD [address] [place] [address] PCP - General 02/06/19 documented as of this encounter Additional Source Comments The information contained in this document represents components of the legal health record. It is not the complete legal health record.[facility]
--- OUTSIDE RECORDS SUMMARY | 2025-01-23 13:06 | XMS_ITS | Encounter Summary ---
Author Organization [facility] Address [address] [facility] [address] [place] [address] Phone Care Team Providers Care Decorating Instructor Name Role Phone Haily Gee MD Primary Care Provider Encounter Details Date Type Department Care Team (Late st Contact Info) Description 01/23/2019 Ancillary Orders [facility],Outside Imaging 30 [place] [address] System, Provider Not In, PhD Partners [address] [address] Social History Tobacco Use Types Packs/Day Years [...] on filedocumented in this encounter Care Teams Decorating Instructor Relationship Specialty Start Date End Date Haily Gee MD [address] [facility] [place] [address] PCP - General 02/06/19 documented as of this encounter Additional Source Comments The information contained in this document represents components of the legal health record. It is not the complete legal health record.[facility]
--- OUTSIDE RECORDS SUMMARY | 2025-01-23 13:06 | XMS_ITS | Encounter Summary ---
Author Organization [facility] Address [address] [facility] [address] [place] [address] Phone Care Team Providers Care Signal Tower Director Name Role Phone Haily Gee MD Primary Care Provider Encounter Details Date Type Department Care Team (Late st Contact Info) Description 01/23/2019 Ancillary Orders [facility],Outside Imaging 30 [place] [address] System, Provider Not In, PhD Partners [address] [address] Social History Tobacco Use Types Packs/Day Years [...] on filedocumented in this encounter Care Teams Signal Tower Director Relationship Specialty Start Date End Date Haily Gee MD [address] [place] [address] PCP - General 02/06/19 documented as of this encounter Additional Source Comments The information contained in this document represents components of the legal health record. It is not the complete legal health record.[facility]
--- OUTSIDE RECORDS SUMMARY | 2025-01-23 13:06 | XMS_ITS | Encounter Summary ---
Author Organization [facility] Address [address] [facility] [address] [place] [address] Phone Care Team Providers Care Rubber Curer Name Role Phone Haily Gee MD Primary Care Provider Encounter Details Date Type Department Care Team (Late st Contact Info) Description 01/23/2019 Ancillary Orders [facility],Outside Imaging 30 [place] [address] System, Provider Not In, PhD [facility] [address] [address] Social History Tobacco Use Types Packs/Day Years [...] on filedocumented in this encounter Care Teams Rubber Curer Relationship Specialty Start Date End Date Haily Gee MD [address] [place] [address] PCP - General 02/06/19 documented as of this encounter Additional Source Comments The information contained in this document represents components of the legal health record. It is not the complete legal health record.[facility]
--- OUTSIDE RECORDS SUMMARY | 2025-01-23 13:06 | XMS_ITS | Encounter Summary ---
Author Organization [facility] Address [address] [facility] [address] [place] [address] Phone Care Team Providers Care Office Chair Assembler Name Role Phone Haily Gee MD Primary Care Provider Encounter Details Date Type Department Care Team (Late st Contact Info) Description 01/23/2019 Ancillary Orders [facility],Outside Imaging 30 [place] [address] System, Provider Not In, PhD Partners [address] [address] Social History Tobacco Use Types Packs/Day Years [...] on filedocumented in this encounter Care Teams Office Chair Assembler Relationship Specialty Start Date End Date Haily Gee MD [address] [place] [address] PCP - General 02/06/19 documented as of this encounter Additional Source Comments The information contained in this document represents components of the legal health record. It is not the complete legal health record.[facility]
--- OUTSIDE RECORDS SUMMARY | 2025-01-23 13:07 | XMS_ITS | Encounter Summary ---
Author Organization [facility] Address [address] [facility] [address] [place] [address] Phone Care Team Providers Care Economic Research Analyst Name Role Phone Haily Gee MD Primary Care Provider Encounter Details Date Type Department Care Team (Late st Contact Info) Description 01/23/2019 Ancillary Orders [facility],Outside Imaging 30 [place] [address] System, Provider Not In, PhD Partners [address] [address] Social History Tobacco Use Types Packs/Day Years [...] on filedocumented in this encounter Care Teams Economic Research Analyst Relationship Specialty Start Date End Date Haily Gee MD [address] [facility] [place] [address] PCP - General 02/06/19 documented as of this encounter Additional Source Comments The information contained in this document represents components of the legal health record. It is not the complete legal health record.[facility]
--- OUTSIDE RECORDS SUMMARY | 2025-01-23 13:07 | XMS_ITS | Clinical Summary ---
Author Organization [facility] Address [address] [facility] [address] [place] [address] Phone Care Team Providers Care Glassware Defect Repairer Name Role Phone Haily Gee MD Primary [...] topic Medical Devices Not on file Insurance [facility] [place] [address] [place] [address] HMO POS [facility] HMO POS [facility] [place] [address] [place] [address] [place] [address] [place] [address] HMO POS [facility] HMO POS [facility] HMO POS Care Teams Glassware Defect Repairer Relationship Specialty Start Date End Date Haily Gee MD [address] [facility] [place] [address] PCP - General 02/06/19 Additional Source Comments The information contained in this document represents components of the legal health record. It is not the complete legal health record.[facility]
[2025-01-23] MEDS: Lidocaine HCl 1 % MPF 5 ML VIAL SUBCUT (13:46)
== END 2025-01-23 12:45 | disposition home or self-care (01) ==
LOC: HO.US 12:44
PROVIDERS: PCP Internal Medicine; Visit Provider Surgery
DX: R59.0 Localized enlarged lymph nodes (principal); Z85.3 Personal history of malignant neoplasm of breast
CPT/HCPCS: 38505; 76942; 88184; 88185; 88305; J2003

== ENCOUNTER → 2025-01-23 12:47 | Outpatient (BNV) | payer MEDICARE, SELFPAY | PROVIDERS: PCP Internal Medicine; Visit Provider Radiology Diagnostic Radiology | DX: Z85.3 Personal history of malignant neoplasm of breast (principal) | CPT/HCPCS: 38505; 76942 ==

== ENCOUNTER 2025-02-03 10:57 | Outpatient (REF) | payer MEDICARE, SELFPAY ==
--- OUTSIDE RECORDS SUMMARY | 2012-12-23 23:00 | XMS_ITS | Encounter Summary ---
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
--- NOTE | ~2025-02-03 | MM_ITS ---
EXAMINATION: MM SCREENING DIGITAL BREAST TOMOSYNTHESIS, BILATERAL CLINICAL INFORMATION: Screening. Asymptomatic. COMPARISON: Mammography: Comparison is made with available priors TECHNIQUE: Digital breast mammography with tomosynthesis is performed in both the craniocaudal and mediolateral oblique views along with computer-aided detection (CAD). FINDINGS: There are scattered areas of fibroglandular density. Right post lumpectomy changes are stable. There are no significant masses, abnormal calcifications, or other abnormalities. MM/MM tomosynthesis screening BI IMPRESSION: No mammographic evidence of malignancy. ASSESSMENT: BI-RADS Category 2: Benign RECOMMENDATION: Routine annual mammography screening. 1 year F/U This examination should not preclude the clinical evaluation of a suspicious palpable abnormality. This patient's information was entered into a reminder system with a target due date for their next mammogram. Electronically signed by: Rossi Osborne DO 02/03/2025 02:52 PM [facility]
--- NOTE | ~2025-02-03 | MM_ITS ---
EXAMINATION: DXA BONE DENSITY AXIAL HISTORY: M85.852 - Other specified disorders of bone density and structure, left ... TECHNIQUE: DiscoveRX Dual energy absorptiometry (DEXA) of the lumbar spine, total left hip, and femoral neck was performed. COMPARISON: Comparison is made with the prior examination dated 01/19/2022. FINDINGS: The bone mineral density of the lumbar spine is 1.108 g/cm2, corresponding to a T-score of -0.6, and a Z-score of 1.6. This is indicative of normal bone mineral density. This represents a BMD change of 2.0% compared to the prior exam. This is not statistically significant. The bone mineral density of the left total hip is 0.939 g/cm2, corresponding to a T-score of -0.5, and a Z-score of 1.5. This is indicative of normal bone mineral density. This represents a BMD change of -0.9% compared to the prior exam. This is not statistically significant. The bone mineral density of the left femoral neck is 0.838 g/cm2, corresponding to a T-score of -1.4, and a Z-score of 0.8. This is indicative of osteopenia. This represents a BMD change of -0.4% compared to the prior exam. FRACTURE RISK: The FRAX index suggests a ten year probability of major osteoporotic fracture of 9.7%, and of hip fracture 2.1%. MM/XR DEXA axial skeleton IMPRESSION: Based on bone mineral density, and according to World Health Organization (WHO) criteria, the diagnosis is consistent with osteopenia. Statistically, 68% of repeat scans fall within 1 SD (+/- 0.010 g/cm2 for AP spine L1-L4) and 1 SD (+/- 0.012 g/cm2 for femur total) FRAX is a trademark of the [employer], a World Health Organization (WHO) Collaborating Center. Electronically signed by: Indio Fox MD 02/03/2025 11:36 AM [facility]
--- OUTSIDE RECORDS SUMMARY | 2025-02-03 12:55 | XMS_ITS | Encounter Summary ---
Author Organization [facility] Address [address] [facility] [address] [place] [address] Phone Care Team Providers Care Machine Sizer Name Role Phone Haily Gee MD Primary Care Provider Encounter Details Date Type Department Care Team (Late st Contact Info) Description 01/23/2019 Ancillary Orders [facility],Outside Imaging 30 [place] [address] System, Provider Not In, PhD Partners [address] [address] Social History Tobacco Use Types Packs/Day Years [...] on filedocumented in this encounter Care Teams Machine Sizer Relationship Specialty Start Date End Date Haily Gee MD [address] [facility] [place] [address] PCP - General 02/06/19 documented as of this encounter Additional Source Comments The information contained in this document represents components of the legal health record. It is not the complete legal health record.[facility]
--- OUTSIDE RECORDS SUMMARY | 2025-02-03 12:55 | XMS_ITS | Encounter Summary ---
Author Organization [facility] Address [address] [facility] [address] [place] [address] Phone Care Team Providers Care Ssds Mk 2 Advanced Operator Name Role Phone Haily Gee MD Primary Care Provider Encounter Details Date Type Department Care Team (Late st Contact Info) Description 01/23/2019 Ancillary Orders [facility],Outside Imaging 30 [place] [address] System, Provider Not In, PhD Partners [address] [address] Social History Tobacco Use Types Packs/Day Years [...] on filedocumented in this encounter Care Teams Ssds Mk 2 Advanced Operator Relationship Specialty Start Date End Date Haily Gee MD [address] [facility] [place] [address] PCP - General 02/06/19 documented as of this encounter Additional Source Comments The information contained in this document represents components of the legal health record. It is not the complete legal health record.[facility]
--- OUTSIDE RECORDS SUMMARY | 2025-02-03 12:55 | XMS_ITS | Encounter Summary ---
Author Organization [facility] Address [address] [facility] [address] [place] [address] Phone Care Team Providers Care Nutrition Intern Name Role Phone Haily Gee MD Primary Care Provider Encounter Details Date Type Department Care Team (Late st Contact Info) Description 01/23/2019 Ancillary Orders [facility],Outside Imaging 30 [place] [address] System, Provider Not In, PhD Partners [address] [address] Social History Tobacco Use Types Packs/Day Years [...] on filedocumented in this encounter Care Teams Nutrition Intern Relationship Specialty Start Date End Date Haily Gee MD [address] [place] [place] [address] PCP - General 02/06/19 documented as of this encounter Additional Source Comments The information contained in this document represents components of the legal health record. It is not the complete legal health record.[facility]
--- OUTSIDE RECORDS SUMMARY | 2025-02-03 12:55 | XMS_ITS | Encounter Summary ---
Author Organization [facility] Address [address] [facility] [address] [place] [address] Phone Care Team Providers Care Analytical Clerk Name Role Phone Haily Gee MD Primary Care Provider Encounter Details Date Type Department Care Team (Late st Contact Info) Description 01/23/2019 Ancillary Orders [facility],Outside Imaging 30 [place] [address] System, Provider Not In, PhD Partners [address] [address] Social History Tobacco Use Types Packs/Day Years [...] on filedocumented in this encounter Care Teams Analytical Clerk Relationship Specialty Start Date End Date Haily Gee MD [address] [place] [address] PCP - General 02/06/19 documented as of this encounter Additional Source Comments The information contained in this document represents components of the legal health record. It is not the complete legal health record.[facility]
--- OUTSIDE RECORDS SUMMARY | 2025-02-03 12:55 | XMS_ITS | Clinical Summary ---
Author Organization [facility] Address [address] [facility] [address] [place] [address] Phone Care Team Providers Care Filler Sifter Machine Name Role Phone Haily Gee MD Primary [...] topic Medical Devices Not on file Insurance [facility] [place] [address] [place] [address] HMO POS [facility] H[facility] POS [facility] [place] [address] [place] [address] [address] [place] [address] [place] [address] [place] [address] HMO POS [facility] HMO POS [facility] HMO POS Care Teams Filler Sifter Machine Relationship Specialty Start Date End Date Haily Gee MD [address] [facility] [place] [address] PCP - General 02/06/19 Additional Source Comments The information contained in this document represents components of the legal health record. It is not the complete legal health record.[facility]
--- OUTSIDE RECORDS SUMMARY | 2025-02-03 12:55 | XMS_ITS | Encounter Summary ---
Author Organization [facility] Address [address] [facility] [address] [place] [address] Phone Care Team Providers Care Cordwood Cutter Name Role Phone Haily Gee MD Primary Care Provider Encounter Details Date Type Department Care Team (Late st Contact Info) Description 01/23/2019 Ancillary Orders [facility],Outside Imaging 30 [place] [address] System, Provider Not In, PhD Partners [address] [address] Social History Tobacco Use Types Packs/Day Years [...] on filedocumented in this encounter Care Teams Cordwood Cutter Relationship Specialty Start Date End Date Haily Gee MD [address] [facility] [place] [address] PCP - General 02/06/19 documented as of this encounter Additional Source Comments The information contained in this document represents components of the legal health record. It is not the complete legal health record.[facility]
--- OUTSIDE RECORDS SUMMARY | 2025-02-03 12:55 | XMS_ITS | Encounter Summary ---
Author Organization [facility] Address [address] [facility] [address] [place] [address] Phone Care Team Providers Care Shirrer Name Role Phone Haily Gee MD Primary Care Provider Encounter Details Date Type Department Care Team (Late st Contact Info) Description 01/23/2019 Ancillary Orders [facility],Outside Imaging 30 [place] [address] System, Provider Not In, PhD Partners [address] [address] Social History Tobacco Use Types Packs/Day Years [...] on filedocumented in this encounter Care Teams Shirrer Relationship Specialty Start Date End Date Haily Gee MD [address] [place] [address] PCP - General 02/06/19 documented as of this encounter Additional Source Comments The information contained in this document represents components of the legal health record. It is not the complete legal health record.[facility]
--- OUTSIDE RECORDS SUMMARY | 2025-02-03 12:55 | XMS_ITS | Encounter Summary ---
Author Organization Formerly [facility] Address [address] [place] [phone] Phone Care Team Providers Care Director Of Public Works Name Role Phone Haily Gee MD Primary Care Provider Encounter Details Date Type Department Care Team (Late st Contact Info) Description 01/23/2019 Ancillary Orders [facility],Outside Imaging [address] [place] [address] System, Provider Not In, [facility] [address] [address] Social History Tobacco Use Types Packs/Day Years [...] on filedocumented in this encounter Care Teams Director Of Public Works Relationship Specialty Start Date End Date Haily Gee MD [address] [place] [address] PCP - General 02/06/19 documented as of this encounter Additional Source Comments The information contained in this document represents components of the legal health record. It is not the complete legal health record.[facility]
--- OUTSIDE RECORDS SUMMARY | 2025-02-03 12:55 | XMS_ITS | Encounter Summary ---
Author Organization [facility] Address [address] [place] [phone] Phone Care Team Providers Care Sail Lay Out Worker Name Role Phone Haily Gee MD Primary Care Provider Encounter Details Date Type Department Care Team (Late st Contact Info) Description 01/23/2019 Ancillary Orders [facility],Outside Imaging [address] [place] [address] System, Provider Not In, [facility] [address] [address] Social History Tobacco Use Types Packs/Day Years [...] on filedocumented in this encounter Care Teams Sail Lay Out Worker Relationship Specialty Start Date End Date Haily Gee MD [address] [address] PCP - General 02/06/19 documented as of this encounter Additional Source Comments The information contained in this document represents components of the legal health record. It is not the complete legal health record.[facility]
== END 2025-02-03 10:58 | disposition home or self-care (01) ==
LOC: HO.MAMMO 10:57
PROVIDERS: PCP Internal Medicine; Visit Provider Internal Medicine
DX: M85.852 Other specified disorders of bone density and structure, left thigh (principal); Z12.31 Encounter for screening mammogram for malignant neoplasm of breast
CPT/HCPCS: 77063; 77067; 77080

== ENCOUNTER → 2025-02-03 11:30 | Outpatient (BNV) | payer MEDICARE, SELFPAY | PROVIDERS: PCP Internal Medicine; Visit Provider Radiology Diagnostic Radiology | DX: Z12.31 Encounter for screening mammogram for malignant neoplasm of breast (principal); E28.39 Other primary ovarian failure | CPT/HCPCS: 77063; 77067; 77080 ==

== ENCOUNTER 2025-02-09 10:12 | Outpatient (AMB) | payer MEDICARE, SELFPAY ==
--- NOTE | 2025-02-09 10:30 | MHC.OFFVIS ---
Vital Signs 02/09/25 10:37 Height 5 ft 3 in Weight 115 lb BMI 20.4 Respiration 16 Pulse 62 Intake Visit Reasons: lymph bx results Intake Note: Patient is seen in office for biopsy results, following for right ear mass. Pt c/o: denies any concerns here for results Accompanied by: Self / Same As Patient Allergies nickel (NICKEL) Allergy (Unknown, Verified 12/30/24 09:45) RASH Medication List - Last Reconciled 02/09/25 by Donny Mariee MD aspirin (Adult Low Dose Aspirin) 81 mg PO DAILY atorvastatin 80 mg PO DAILY [calcium 1 tab PO DAILY] cholecalciferol (vitamin D3) (Vitamin D3) 25 mcg PO DAILY losartan 25 mg PO DAILY metoprolol succinate ER 25 mg PO DAILY HPI Comments Details: 74-year-old female patient returning to the office after recent right neck lump ultrasound-guided biopsy. The lump in the right neck was 1st identified by the patient several months ago in his not associated with any overlying skin change or discharge. She denies a history of fever, chills, anorexia, weight loss, or other associated symptoms. A previous ultrasound of the head and neck revealed a right periauricular mass most consistent with a lymph node in the upper limits of normal. She has a prior history of a right breast cancer. A needle core biopsy was performed here ultrasound-guided on 01/23/2025. Pathology revealed atypia of uncertain malignant potential (category 3). Examination revealed abundant blood, few oncocytic cells, and rare basaloid cells. The differential includes benign and malignant neoplasms. Sampling was recommended. Flow cytometry revealed nonspecific T-cell dominant profile with predominant CD4 positive T-cells. Diagnostic features of a B-cell lymphoproliferative disorder is not seen. No increase in blast gate or CD34 positive events identified. She tolerated the biopsy well and denies any ongoing neck symptoms. A copy of the report was provided to the patient. [facility] Medical History Left carotid bruit Ischemic cardiomyopathy History of ST elevation myocardial infarction (STEMI) Hyperlipidemia LDL goal <100 Impaired fasting glucose History of adenomatous polyp of colon Lobular carcinoma of right breast Surgical History History of heart artery stent History of surgery Hx of tonsillectomy Family History Mother Pancreatic cancer Father Heart disease Social History Household Members: Spouse Housing: House Are you a primary care information associate to a significant other at home: No Do you presently have visiting nurse or other home services: No Alcohol intake: current Alcohol intake frequency: holidays/special occasions only Patient Tobacco Use Status: Never used Tobacco e-Cigarette/Vaping Use: Never Used service: No Current occupational status: retired 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 Site of palpable mass approximately 1.5 cm diameter Ears: hearing grossly normal bilaterally Resp Effort & Inspection: normal respiratory effort, no audible wheezes, no cough and no respiratory distress Cardio Jugular venous distension: no JVD GI Inspection: Yes normal to inspection Skin Other: Warm, dry, no rash Neuro General: patient oriented x3 Extrem General: Yes no clubbing, cyanosis or edema Assessment & Plan Assessment & Plan (1) Parotid mass: Comment: right side, needle bx , atypia of uncertain malignant potential Code(s): K11.8 - Other diseases of salivary glands Category: Medical Plan 74-year-old female patient with a palpable mass most probably in the parotid gland, s/p needle core biopsy with indeterminate results. Finding does not appear to be a lymphoma. I recommended ENT evaluation for possible further biopsy and further management. Referral has been sent to [facility]. She should follow up as needed. Coding Level of Care Code Est Pt Level 3 (04310) Diagnoses Parotid mass K11.8
[2025-02-09 10:37] VITALS: PULSE 62; RESP 16; BMI 20.4
== END 2025-02-09 11:35 | disposition home or self-care (01) ==
LOC: HO.HGS 10:13
PROVIDERS: PCP Internal Medicine; Visit Provider Surgery
DX: K11.8 Other diseases of salivary glands (principal)
CPT/HCPCS: 99213

== ENCOUNTER → 2025-02-09 10:12 | Outpatient (BNVA) | payer MEDICARE, SELFPAY | PROVIDERS: PCP Internal Medicine; Visit Provider Surgery | DX: K11.8 Other diseases of salivary glands (principal); Z85.3 Personal history of malignant neoplasm of breast; Z79.82 Long term (current) use of aspirin | CPT/HCPCS: 99212 ==